=== PATIENT | female | born 1955 | race Caucasian/White ===

== ENCOUNTER 2017-05-17 06:49 | Emergency (ER) | payer MEDICARE, MEDICAID ==
[2017-05-17] MEDS ORDERED: Ketorolac 60 MG/2 ML SDV IM ONE (07:40)
--- NOTE | 2017-05-17 08:12 | EDM.PDOC ---
ED HPI GENERAL MEDICAL PROBLEM - General Chief Complaint: Back Pain or Injury Stated Complaint: BACK PAIN Time Seen by Provider: 05/17/17 07:45 Source of Information: Reports: Patient History Limitations: Reports: No Limitations - History of Present Illness INITIAL COMMENTS - FREE TEXT/NARRATIVE: pt arrived stating that this am she was having midsternal chest pain which she rated at a 7. She had gotten up to deal with that and developed severe pain in the lumbar area radiatig down the rt leg. She states this is the worst her back pin has ever been. She is going to the bathroom frequently. Onset: Today Duration: Hour(s): Location: Reports: Chest, Back Associated Symptoms: Reports: Chest Pain, Other (pt is having severe back pain going down the rt leg. ) Lower Back Pain Score (Numeric/FACES): 7 - Related Data Allergies Allergy/AdvReac Type Severity Reaction Status Date / Time acetaminophen [From Vicodin] Allergy Cannot Verified 05/17/17 07:10 Remember azithromycin Allergy Rash Verified 05/17/17 07:10 cyclobenzaprine HCl Allergy Rash Verified 05/17/17 07:10 [From Flexeril] hydrocodone [From Vicodin] Allergy Cannot Verified 05/17/17 07:10 Remember oxycodone HCl Allergy Rash Verified 05/17/17 07:10 [From OxyContin] Sulfa (Sulfonamide Allergy Rash Verified 05/17/17 07:10 Antibiotics) Home Meds: Home Meds Simvastatin [Zocor] 20 mg PO BEDTIME 05/14/13 [History] Aspirin [Halfprin] 81 mg PO QAM 02/06/15 [History] Ca Carbonate/Vitamin D3/Vit K [Calcium + D Soft Chewable Tab] 2 tab PO BID 02/06 [History] Multivitamins,Therapeutic [Thera] 1 tab PO BID 02/06/15 [History] Gabapentin [Gabapentin] 300 mg PO TID PRN 12/21/15 [History] Esomeprazole Magnesium [Nexium] 40 mg PO DAILY 04/27/16 [History] Furosemide [Lasix] 20 mg PO DAILY PRN 04/27/16 [History] Dimethyl Fumarate [Tecfidera] 240 mg PO BID 06/16/16 [History] Ondansetron [Ondansetron] 4 mg PO Q6HR PRN 06/16/16 [History] Acetaminophen/Codeine [Tylenol with Codeine No.3 300MG/30MG] 1 tab PO Q6H PRN [History] diphenhydrAMINE [Benadryl] 25 mg PO Q4H PRN 05/17/17 [History] Past Medical History HEENT History: Reports: Cataract, Impaired Vision Cardiovascular History: Reports: High Cholesterol Other Cardiovascular History: EDEMA IN LEGS Respiratory History: Reports: Pneumonia, Recurrent Gastrointestinal History: Reports: Gastritis, GERD Genitourinary History: Reports: Renal Calculus, UTI, Recurrent Other Genitourinary History: Current treatment for yeast [employer]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: Dysfunctional Uterine Bleeding, Musculoskeletal History: Reports: Back Pain, Chronic, Fracture Other Musculoskeletal History: l ankle Neurological History: Reports: Migraines, MS Psychiatric History: Reports: Anxiety, Depression Endocrine/Metabolic History: Reports: Obesity/BMI 30+ Hematologic History: Reports: Anemia Immunologic History: Reports: None Oncologic (Cancer) History: Reports: None Dermatologic History: Reports: Other (See Below) Other Dermatologic History: recurrent treatment for yeast - Infectious Disease History Infectious Disease History: Reports: Chicken Pox, Measles - Past Surgical History HEENT Surgical History: Reports: Adenoidectomy, Cataract Surgery, Tonsillectomy , Visual GI Surgical History: Reports: Appendectomy, Bariatric Procedure, Cholecystectomy , Colonoscopy Female Surgical History: Reports: Hysterectomy, Salpingo-Oophorectomy, Tubal Ligation Endocrine Surgical History: Reports: None Neurological Surgical History: Reports: None Musculoskeletal Surgical History: Reports: Carpal Tunnel, Shoulder Surgery Social & Family History - Family History Family Medical History: Noncontributory - Tobacco Use Smoking Status *Q: Never Smoker Second Hand Smoke Exposure: No - Caffeine Use Caffeine Use: Reports: Soda, Tea - Alcohol Use Days Per Week of Alcohol Use: 0 - Recreational Drug Use Recreational Drug Use: No ED ROS GENERAL - Review of Systems Review Of Systems: See Below Constitutional: Reports: No Symptoms HEENT: Reports: No Symptoms Respiratory: Reports: No Symptoms Cardiovascular: Reports: Chest Pain Endocrine: Reports: No Symptoms GI/Abdominal: Reports: No Symptoms : Reports: Frequency Musculoskeletal: Reports: Other (pt hs severe pain in the lower back going down the rt leg. ) Skin: Reports: No Symptoms ED EXAM,LOWER BACK PAIN/INJURY - Physical Exam Exam: See Below Text/Narrative:: pt arrived uncomfortable in the lower back and having urinary frequency. Exam Limited By: No Limitations General Appearance: Alert, Anxious, Moderate Distress Ears: Normal TMs Nose: Normal Inspection Throat/Mouth: Normal Inspection Head: Atraumatic Neck: Normal Inspection Respiratory/Chest: No Respiratory Distress Cardiovascular: Regular Rate, Rhythm GI/Abdominal: Soft, Non-Tender (Female) Exam: Deferred Rectal (Female) Exam: Deferred Back Exam: Other (pt has rt lumbar paraspinous tenderness. ) Extremities: Normal Inspection Neurological: Alert, Oriented x 3 Psychiatric: Normal Affect Course - Vital Signs Last Recorded V/S: Last Vital Signs Temp 37 C 05/17/17 09:45 Pulse 73 05/17/17 09:45 Resp 16 05/17/17 09:45 BP 130/65 05/17/17 09:45 Pulse Ox 99 05/17/17 09:45 - Orders/Labs/Meds Orders: Active Orders 24 hr Category Date Time Status EKG Documentation Completion [RC] ASDIRECTED Care 05/17/17 08:06 Active CULTURE URINE [RM] Stat Lab 05/17/17 08:23 Results EKG 12 Lead [EK] Routine Ther 05/17/17 08:06 Ordered Labs: Laboratory Tests 05/17/17 05/17/17 05/17/17 Range/Units 07:46 07:55 08:25 WBC 8.6 (4.5-11.0) K/uL RBC 4.62 (3.30-5.50) M/uL Hgb 13.0 D (12.0-15.0) g/dL Hct 39.7 (36.0-48.0) % MCV 86 (80-98) fL MCH 28 (27-31) pg MCHC 33 (32-36) % Plt Count 220 (150-400) K/uL Neut % (Auto) 73 H (36-66) % Lymph % (Auto) 8 L (24-44) % [place] % (Auto) 7 H (2-6) % Eos % (Auto) 12 H (2-4) % Baso % (Auto) 1 (0-1) % Sodium (140-148) mmol/L Potassium (3.6-5.2) mmol/L Chloride (100-108) mmol/L Carbon Dioxide (21-32) mmol/L Anion Gap (5.0-14.0) mmol/L BUN (7-18) mg/dL Creatinine (0.6-1.0) mg/dL Est Cr Clr Drug Dosing mL/min Estimated GFR (MDRD) (>60) Glucose (74-106) mg/dL Calcium (8.5-10.1) mg/dL Total Bilirubin (0.2-1.0) mg/dL AST (15-37) U/L ALT (12-78) U/L Alkaline Phosphatase (46-116) U/L Troponin I < 0.017 (0.000-0.056) ng/mL Total Protein (6.4-8.2) g/dL Albumin (3.4-5.0) g/dL Globulin (2.3-3.5) g/dL Albumin/Globulin Ratio (1.2-2.2) Urine Color Yellow Urine Appearance Cloudy Urine pH 5.0 (4.5-8.0) Ur Specific [place] 1.025 (1.008-1.030) Urine Protein Trace (NEGATIVE) mg/dL Urine Glucose (UA) Normal (NEGATIVE) mg/dL Urine Ketones Negative (NEGATIVE) mg/dL Urine Occult Blood Large (NEGATIVE) Urine Nitrite Negative (NEGATIVE) Urine Bilirubin Small (NEGATIVE) Urine Urobilinogen 1 (NORMAL) mg/dL Ur Leukocyte Esterase Small (NEGATIVE) Urine RBC 5-10 H (0-5) Urine WBC 5-10 H (0-5) Ur Epithelial Cells Moderate Amorphous Sediment Not seen Urine Bacteria Few Urine Mucus Many Urine Other 05/17/17 Range/Units 08:25 WBC (4.5-11.0) K/uL RBC (3.30-5.50) M/uL Hgb (12.0-15.0) g/dL Hct (36.0-48.0) % MCV (80-98) fL MCH (27-31) pg MCHC (32-36) % Plt Count (150-400) K/uL Neut % (Auto) (36-66) % Lymph % (Auto) (24-44) % Woodruff % (Auto) (2-6) % Eos % (Auto) (2-4) % Baso % (Auto) (0-1) % Sodium 139 L (140-148) mmol/L Potassium 4.0 (3.6-5.2) mmol/L Chloride 102 (100-108) mmol/L Carbon Dioxide 30 (21-32) mmol/L Anion Gap 11.0 (5.0-14.0) mmol/L BUN 22 H (7-18) mg/dL Creatinine 1.0 (0.6-1.0) mg/dL Est Cr Clr Drug Dosing 46.13 mL/min Estimated GFR (MDRD) 56 L (>60) Glucose 92 (74-106) mg/dL Calcium 8.7 (8.5-10.1) mg/dL Total Bilirubin 0.3 D (0.2-1.0) mg/dL AST 22 (15-37) U/L ALT 30 (12-78) U/L Alkaline Phosphatase 91 (46-116) U/L Troponin I (0.000-0.056) ng/mL Total Protein 7.2 (6.4-8.2) g/dL Albumin 3.5 (3.4-5.0) g/dL Globulin 3.7 H (2.3-3.5) g/dL Albumin/Globulin Ratio 1.0 L (1.2-2.2) Urine Color Urine Appearance Urine pH (4.5-8.0) Ur Specific [place] (1.008-1.030) Urine Protein (NEGATIVE) mg/dL Urine Glucose (UA) (NEGATIVE) mg/dL Urine Ketones (NEGATIVE) mg/dL Urine Occult Blood (NEGATIVE) Urine Nitrite (NEGATIVE) Urine Bilirubin (NEGATIVE) Urine Urobilinogen (NORMAL) mg/dL Ur Leukocyte Esterase (NEGATIVE) Urine RBC (0-5) Urine WBC (0-5) Ur Epithelial Cells Amorphous Sediment Urine Bacteria Urine Mucus Urine Other Meds: Medications Discontinued Medications Generic Name Dose Route Start Last Admin Trade Name Freq PRN Reason Stop Dose Admin Ceftriaxone Sodium 1 gm/ 0 gm 05/17/17 09:47 05/17/17 10:13 Lidocaine HCl 2.1 ml IM 05/17/17 09:48 1 inj ONETIME ONE Administration Ketorolac Tromethamine 60 mg 05/17/17 07:40 05/17/17 07:46 Toradol IM 05/17/17 07:41 60 mg ONETIME ONE Administration - Re-Assessments/Exams Free Text/Narrative Re-Assessment/Exam: 05/17/17 10:16 pt is having definite uti symptoms and is going very frequently. She has a urine with wbcs without alot of bacteria. She was given torodol 60mg im and has had good relief with that. Her ekg and trop are normal. 05/17/17 10:17 Departure - Departure Time of Disposition: 10:17 Disposition: Home, Self-Care 01 Condition: Fair Clinical Impression: UTI (urinary tract infection), Lumbar disc disease - Discharge Information Instructions: Urinary Tract Infection, Adult Referrals: PCP,None [Primary Care Provider] - Forms: ED Department Discharge Care Plan Goals: push fluids, get her tylenol 3 refilled. torodol 10mg tid for the next 3 days, moist warm packs to the low back on the rt, cipro 500mg bid, diflucan 100mg for --prevent yeast infection, rtc if problems. - My Orders Last 24 Hours: My Active Orders 05/17/17 08:06 EKG Documentation Completion [RC] ASDIRECTED EKG 12 Lead [EK] Routine 05/17/17 08:23 CULTURE URINE [RM] Stat - Assessment/Plan Last 24 Hours: My Active Orders 05/17/17 08:06 EKG Documentation Completion [RC] ASDIRECTED EKG 12 Lead [EK] Routine 05/17/17 08:23 CULTURE URINE [RM] Stat
[2017-05-17 09:46] VITALS: BP 130/65
[2017-05-17] MEDS ORDERED: cefTRIAXone 1 GM, Lidocaine 1% 2.1 ML IM ONE ×2 (09:47)
== END 2017-05-17 10:30 | disposition home or self-care (01) ==
LOC: JP.ED 06:49
DX: N39.0 Urinary tract infection, site not specified (principal); M51.36 Other intervertebral disc degeneration, lumbar region; E78.00 Pure hypercholesterolemia, unspecified; K21.9 Gastro-esophageal reflux disease without esophagitis; Z87.440 Personal history of urinary (tract) infections; G43.909 Migraine, unspecified, not intractable, without status migrainosus; F32.9 Major depressive disorder, single episode, unspecified; F41.9 Anxiety disorder, unspecified; E66.9 Obesity, unspecified; Z88.1 Allergy status to other antibiotic agents; Z79.899 Other long term (current) drug therapy; Z88.5 Allergy status to narcotic agent; Z88.2 Allergy status to sulfonamides; Z79.82 Long term (current) use of aspirin; Z86.79 Personal history of other diseases of the circulatory system; Z90.49 Acquired absence of other specified parts of digestive tract; Z90.89 Acquired absence of other organs; Z90.710 Acquired absence of both cervix and uterus; Z98.51 Tubal ligation status
CPT/HCPCS: 36415; 80053; 81001; 84484; 85025; 87086; 93005; 93010; 96372; 99283; 99284; J0696; J1885

== ENCOUNTER 2017-08-01 11:05 | Emergency (ER) | payer MEDICARE, MEDICAID ==
--- NOTE | 2017-08-01 12:00 | EDM.PDOC ---
ED HPI GENERAL MEDICAL PROBLEM - General Chief Complaint: Chest Pain Stated Complaint: MEDICAL Time Seen by Provider: 08/01/17 11:48 Source of Information: Reports: Patient, RN Notes Reviewed History Limitations: Reports: No Limitations - History of Present Illness INITIAL COMMENTS - FREE TEXT/NARRATIVE: 62-year-old female presents to the emergency department today complaint of a syncopal event, she states that she was sitting for a period time stood up quickly develop some chest pain, the next thing she knew she woke up on the ground initially, recalls landing on her butt then awoke on the ground. At this time she is chest pain-free has no other symptoms does complain of a cough that has been going on for a week EKG done by EMS services demonstrates normal sinus rhythm with no ST changes - Related Data Allergies Allergy/AdvReac Type Severity Reaction Status Date / Time acetaminophen [From Vicodin] Allergy Cannot Verified 05/17/17 07:10 Remember azithromycin Allergy Rash Verified 05/17/17 07:10 cyclobenzaprine HCl Allergy Rash Verified 05/17/17 07:10 [From Flexeril] hydrocodone [From Vicodin] Allergy Cannot Verified 05/17/17 07:10 Remember oxycodone HCl Allergy Rash Verified 05/17/17 07:10 [From OxyContin] Sulfa (Sulfonamide Allergy Rash Verified 05/17/17 07:10 Antibiotics) Home Meds: Home Meds Simvastatin [Zocor] 20 mg PO BEDTIME 05/14/13 [History] Aspirin [Halfprin] 81 mg PO QAM 02/06/15 [History] Ca Carbonate/Vitamin D3/Vit K [Calcium + D Soft Chewable Tab] 2 tab PO BID 02/06 [History] Multivitamins,Therapeutic [Thera] 1 tab PO BID 02/06/15 [History] Gabapentin [Gabapentin] 300 mg PO TID PRN 12/21/15 [History] Furosemide [Lasix] 20 mg PO DAILY PRN 04/27/16 [History] Dimethyl Fumarate [Tecfidera] 240 mg PO BID 06/16/16 [History] Ondansetron [Ondansetron] 4 mg PO Q6HR PRN 06/16/16 [History] Acetaminophen/Codeine [Tylenol with Codeine No.3 300MG/30MG] 1 tab PO Q6H PRN [History] diphenhydrAMINE [Benadryl] 25 mg PO Q4H PRN 05/17/17 [History] Citalopram [Citalopram HBr] 40 mg PO DAILY 08/01/17 [History] Esomeprazole Magnesium 40 mg PO DAILY 08/01/17 [History] Ibuprofen 800 mg PO TID PRN 08/01/17 [History] Past Medical History HEENT History: Reports: Cataract, Impaired Vision Cardiovascular History: Reports: High Cholesterol Other Cardiovascular History: EDEMA IN LEGS Respiratory History: Reports: Pneumonia, Recurrent Gastrointestinal History: Reports: Gastritis, GERD Genitourinary History: Reports: Renal Calculus, UTI, Recurrent Other Genitourinary History: Current treatment for yeast [employer]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 Bleeding, Musculoskeletal History: Reports: Back Pain, Chronic, Fracture Other Musculoskeletal History: R hip pain Neurological History: Reports: Migraines, MS Psychiatric History: Reports: Anxiety, Depression Endocrine/Metabolic History: Reports: Obesity/BMI 30+ Hematologic History: Reports: Anemia Dermatologic History: Reports: Other (See Below) Other Dermatologic History: recurrent treatment for yeast - Infectious Disease History Infectious Disease History: Reports: Chicken Pox, Measles - Past Surgical History HEENT Surgical History: Reports: Adenoidectomy, Cataract Surgery, Tonsillectomy , Visual GI Surgical History: Reports: Appendectomy, Bariatric Procedure, Cholecystectomy , Colonoscopy Female Surgical History: Reports: Hysterectomy, Salpingo-Oophorectomy, Tubal Ligation Endocrine Surgical History: Reports: None Neurological Surgical History: Reports: None Musculoskeletal Surgical History: Reports: Carpal Tunnel, Shoulder Surgery Social & Family History - Family History Family Medical History: Noncontributory - Tobacco Use Smoking Status *Q: Never Smoker Second Hand Smoke Exposure: No - Caffeine Use Caffeine Use: Reports: Soda, Tea - Alcohol Use Days Per Week of Alcohol Use: 0 - Recreational Drug Use Recreational Drug Use: No ED ROS GENERAL - Review of Systems Review Of Systems: See Below Constitutional: Reports: No Symptoms HEENT: Reports: No Symptoms Respiratory: Reports: Cough Cardiovascular: Reports: Syncope ED EXAM, GENERAL - Physical Exam Exam: See Below Free Text/Narrative:: General: Female, not in any distress, alert and oriented x3 HEENT: head is atraumatic normocephalic, eyes pupils equal round reactive to light, sclera clear no conjunctivitis appreciated. Ears tympanic membranes clear and gomez landmarks and light reflex are present bilaterally canals are clear. Nose no septal deviation, nares are clear, no blood present. Mouth mucosa is moist and pink no erythema or exudate noted in soft palate, tongue is midline uvula is midline, dentition is intact. Neck: Supple no thyromegaly no tracheal deviation. Nodes: Cervical nodes subclavicular nodes nontender no palpable lymphadenopathy noted. Lungs: clear to auscultation bilaterally with symmetrical respirations, no adventitious noise appreciated. CV: Regular rate and rhythm S1 and S2 appreciated no murmurs rubs or gallops noted. Abdomen: Soft, nontender, no palpable masses or organomegaly appreciated, no distention no guarding bowel sounds are present, Neuro: Cranial nerves II through XII grossly intact Skin: Warm and dry, intact Extremities: +1 edema bilaterally, pedal pulse is +2. Course - Vital Signs Last Recorded V/S: Last Vital Signs Temp 97.7 F 08/01/17 11:23 Pulse 82 08/01/17 11:23 Resp 14 08/01/17 11:23 BP 133/79 08/01/17 11:23 Pulse Ox 97 08/01/17 11:23 - Orders/Labs/Meds Orders: Active Orders 24 hr Category Date Time Status Cardiac Monitoring [RC] .As Directed Care 08/01/17 11:54 Active CULTURE URINE [RM] Urgent Lab 08/01/17 13:23 Ordered Labs: Laboratory Tests 08/01/17 08/01/17 08/01/17 Range/Units 11:57 12:01 12:01 WBC 5.9 (4.5-11.0) K/uL RBC 4.43 (3.30-5.50) M/uL Hgb 12.5 (12.0-15.0) g/dL Hct 39.7 (36.0-48.0) % MCV 90 (80-98) fL MCH 28 (27-31) pg MCHC 32 (32-36) % Plt Count 268 (150-400) K/uL Neut % (Auto) 73 H (36-66) % Lymph % (Auto) 13 L (24-44) % [place] % (Auto) 11 H (2-6) % Eos % (Auto) 2 (2-4) % Baso % (Auto) 0 (0-1) % Sodium 141 (140-148) mmol/L Potassium 3.9 (3.6-5.2) mmol/L Chloride 106 (100-108) mmol/L Carbon Dioxide 30 (21-32) mmol/L Anion Gap 4.8 L (5.0-14.0) mmol/L BUN 19 H (7-18) mg/dL Creatinine 0.8 (0.6-1.0) mg/dL Est Cr Clr Drug Dosing 57.67 mL/min Estimated GFR (MDRD) > 60 (>60) Glucose 120 H (74-106) mg/dL Calcium 8.9 (8.5-10.1) mg/dL Total Bilirubin 0.3 (0.2-1.0) mg/dL AST 17 (15-37) U/L ALT 32 (12-78) U/L Alkaline Phosphatase 94 (46-116) U/L CK-MB (CK-2) 0.3 (0-3.6) mg/mL Troponin I < 0.017 (0.000-0.056) ng/mL Total Protein 6.7 (6.4-8.2) g/dL Albumin 3.5 (3.4-5.0) g/dL Globulin 3.2 (2.3-3.5) g/dL Albumin/Globulin Ratio 1.1 L (1.2-2.2) Urine Color Yellow Urine Appearance Cloudy Urine pH 6.0 (4.5-8.0) Ur Specific [place] 1.020 (1.008-1.030) Urine Protein Negative (NEGATIVE) mg/dL Urine Glucose (UA) Normal (NEGATIVE) mg/dL Urine Ketones Negative (NEGATIVE) mg/dL Urine Occult Blood Large (NEGATIVE) Urine Nitrite Negative (NEGATIVE) Urine Bilirubin Small (NEGATIVE) Urine Urobilinogen 1 (NORMAL) mg/dL Ur Leukocyte Esterase Moderate (NEGATIVE) Urine RBC 0-5 (0-5) Urine WBC 5-10 H (0-5) Ur Epithelial Cells Moderate Amorphous Sediment Few Urine Bacteria Few Urine Mucus Moderate Departure - Departure Time of Disposition: 13:30 Disposition: Home, Self-Care 01 Condition: Good Clinical Impression: Vasovagal syncope Referrals: PCP,None [Primary Care Provider] - Forms: ED Department Discharge Additional Instructions: Continue regular medications, Please followup with your primary care provider in 3-5 days if not better, please call return to the emergency department with worsening of symptoms. - My Orders Last 24 Hours: My Active Orders 08/01/17 11:54 Cardiac Monitoring [RC] .As Directed 08/01/17 13:23 CULTURE URINE [RM] Urgent - Assessment/Plan Last 24 Hours: My Active Orders 08/01/17 11:54 Cardiac Monitoring [RC] .As Directed 08/01/17 13:23 CULTURE URINE [RM] Urgent Plan: Assessment Acuity = acute Site and laterality = vasovagal syncopal event comp came patient with known history of multiple sclerosis Etiology = probable change in position quickly Manifestations = none Location of injury = Home Lab values = CBC, CMP, troponin, CK-MB are within normal limits EKG demonstrates sinus rhythm no ST changes or depressions chest x-ray shows no acute process urinalysis 5-10 wbc's consists of pyuria cultures pending Plan I did review lab work EKG chest x-ray results with her she remained asymptomatic while in the emergency department plan is discharge home follow-up primary care 3-5 days if no improvement Patient was in agreement with the plan all questions were answered, they were instructed to return to the emergency department or call for worsening symptoms. This note was dictated using [employer] voice recognition software please call with any questions.
--- NOTE | 2017-08-01 12:51 | CR ---
Chest 2V INDICATION: Chest Pain COMPARISON: 09/08/2016 FINDINGS: 3 views. Heart size normal. Lungs are clear. No infiltrate or pleural effusion. No signs of pulmonary edema.
[2017-08-01 13:54] VITALS: BP 121/79
== END 2017-08-01 13:44 | disposition home or self-care (01) ==
LOC: JP.ED 11:05
DX: R55 Syncope and collapse (principal); E78.00 Pure hypercholesterolemia, unspecified; K21.9 Gastro-esophageal reflux disease without esophagitis; F32.9 Major depressive disorder, single episode, unspecified; Z79.82 Long term (current) use of aspirin; Z79.899 Other long term (current) drug therapy; Z88.1 Allergy status to other antibiotic agents; Z88.2 Allergy status to sulfonamides; Z88.6 Allergy status to analgesic agent; Z88.8 Allergy status to other drugs, medicaments and biological substances; Z88.5 Allergy status to narcotic agent
CPT/HCPCS: 36415; 71020; 71020-26; 80053; 81001; 82553; 84484; 85025; 87086; 87088; 87186; 99284; 99285

== ENCOUNTER 2018-01-12 13:59 | Emergency (ER) | payer MEDICARE, MEDICAID, OTHER ==
[2018-01-12 14:14] VITALS: BP 168/90
[2018-01-12] MEDS ORDERED: Ketorolac 60 MG/2 ML SDV IM ONE (15:12)
--- NOTE | 2018-01-12 15:15 | EDM.PDOC ---
ED HPI GENERAL MEDICAL PROBLEM - General Chief Complaint: General Stated Complaint: CHEST PRESSURE URINE OFTEN Time Seen by Provider: 01/12/18 14:59 Source of Information: Reports: Patient, RN Notes Reviewed History Limitations: Reports: No Limitations - History of Present Illness INITIAL COMMENTS - FREE TEXT/NARRATIVE: 62-year-old female presents emergency department today with complaint of low back pain, she states she fell yesterday and is having pain lower part of her back she also is having some urinary frequency and is complaining of a headache - Related Data Allergies Allergy/AdvReac Type Severity Reaction Status Date / Time acetaminophen [From Vicodin] Allergy Cannot Verified 01/12/18 14:35 Remember azithromycin Allergy Rash Verified 01/12/18 14:35 cyclobenzaprine HCl Allergy Rash Verified 01/12/18 14:35 [From Flexeril] hydrocodone [From Vicodin] Allergy Cannot Verified 01/12/18 14:35 Remember oxycodone HCl Allergy Rash Verified 01/12/18 14:35 [From OxyContin] Sulfa (Sulfonamide Allergy Rash Verified 01/12/18 14:35 Antibiotics) Home Meds: Home Meds Simvastatin [Zocor] 20 mg PO BEDTIME 05/14/13 [History] Aspirin [Halfprin] 81 mg PO QAM 02/06/15 [History] Ca Carbonate/Vitamin D3/Vit K [Calcium + D Soft Chewable Tab] 2 tab PO BID 02/06 [History] Multivitamins,Therapeutic [Thera] 1 tab PO BID 02/06/15 [History] Gabapentin 300 mg PO TID PRN 12/21/15 [History] Furosemide [Lasix] 20 mg PO DAILY PRN 04/27/16 [History] Dimethyl Fumarate [Tecfidera] 240 mg PO BID 06/16/16 [History] Ondansetron 4 mg PO Q6HR PRN 06/16/16 [History] Acetaminophen/Codeine [Tylenol with Codeine No.3 300MG/30MG] 1 tab PO Q6H PRN [History] diphenhydrAMINE [Benadryl] 25 mg PO Q4H PRN 05/17/17 [History] Citalopram [Citalopram HBr] 40 mg PO DAILY 08/01/17 [History] Esomeprazole Magnesium 40 mg PO DAILY 08/01/17 [History] Ibuprofen 800 mg PO TID PRN 08/01/17 [History] Past Medical History HEENT History: Reports: Cataract, Impaired Vision Cardiovascular History: Reports: High Cholesterol Other Cardiovascular History: EDEMA IN LEGS Respiratory History: Reports: Pneumonia, Recurrent Gastrointestinal History: Reports: Gastritis, GERD Genitourinary History: Reports: Renal Calculus, UTI, Recurrent Other Genitourinary History: Current treatment for yeast 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, Musculoskeletal History: Reports: Back Pain, Chronic, Fracture Other Musculoskeletal History: R hip pain Neurological History: Reports: Migraines, MS Psychiatric History: Reports: Anxiety, Depression Endocrine/Metabolic History: Reports: Obesity/BMI 30+ Hematologic History: Reports: Anemia Dermatologic History: Reports: Other (See Below) Other Dermatologic History: recurrent treatment for yeast - Infectious Disease History Infectious Disease History: Reports: Chicken Pox, Measles - Past Surgical History HEENT Surgical History: Reports: Adenoidectomy, Cataract Surgery, Tonsillectomy , Visual GI Surgical History: Reports: Appendectomy, Bariatric Procedure, Cholecystectomy , Colonoscopy Female Surgical History: Reports: Hysterectomy, Salpingo-Oophorectomy, Tubal Ligation Endocrine Surgical History: Reports: None Neurological Surgical History: Reports: None Musculoskeletal Surgical History: Reports: Carpal Tunnel, Shoulder Surgery Social & Family History - Family History Family Medical History: Noncontributory - Tobacco Use Smoking Status *Q: Never Smoker - Caffeine Use Caffeine Use: Reports: Soda, Tea ED ROS GENERAL - Review of Systems Review Of Systems: See Below Constitutional: Reports: No Symptoms HEENT: Reports: No Symptoms Respiratory: Reports: No Symptoms Cardiovascular: Reports: No Symptoms GI/Abdominal: Reports: No Symptoms : Reports: Frequency Musculoskeletal: Reports: Back Pain Neurological: Reports: Headache ED EXAM, GENERAL - Physical Exam Exam: See Below Exam Limited By: No Limitations General Appearance: Alert, WD/WN, No Apparent Distress Respiratory/Chest: No Respiratory Distress GI/Abdominal: Normal Bowel Sounds, Soft, Non-Tender, No Distention Back Exam: Normal Inspection, Decreased Range of Motion, Vertebral Tenderness ( Lumbar region). No: CVA Tenderness (R), CVA Tenderness (L), Muscle Spasm, Paraspinal Tenderness Course - Vital Signs Last Recorded V/S: Last Vital Signs Temp 96.6 F 01/12/18 14:44 Pulse 94 01/12/18 14:44 Resp 15 01/12/18 14:44 BP 168/90 H 01/12/18 14:44 Pulse Ox 99 01/12/18 14:44 - Orders/Labs/Meds Orders: Active Orders 24 hr Category Date Time Status Lumbar Spine 2 or 3V [CR] Stat Exams 01/12/18 15:12 Taken CULTURE URINE [RM] Urgent Lab 01/12/18 16:21 Ordered UA W/MICROSCOPIC [URIN] Urgent Lab 01/12/18 14:30 Ordered Labs: Laboratory Tests 01/12/18 Range/Units 14:30 Urine Color Yellow Urine Appearance Cloudy Urine pH 5.0 (4.5-8.0) Ur Specific [place] 1.025 (1.008-1.030) Urine Protein Negative (NEGATIVE) mg/dL Urine Glucose (UA) Normal (NEGATIVE) mg/dL Urine Ketones Negative (NEGATIVE) mg/dL Urine Occult Blood Negative (NEGATIVE) Urine Nitrite Negative (NEGATIVE) Urine Bilirubin Moderate (NEGATIVE) Urine Urobilinogen 1 (NORMAL) mg/dL Ur Leukocyte Esterase Moderate (NEGATIVE) Urine RBC 0-5 (0-5) Urine WBC 10-20 H (0-5) Ur Epithelial Cells Many Amorphous Sediment Not seen Urine Bacteria Many Urine Mucus Moderate Urine Other Meds: Medications Discontinued Medications Generic Name Dose Route Start Last Admin Trade Name Leann PRN Reason Stop Dose Admin Ketorolac Tromethamine 60 mg 01/12/18 15:12 01/12/18 15:20 Toradol IM 01/12/18 15:13 60 mg ONETIME ONE Administration Departure - Departure Time of Disposition: 16:49 Disposition: Home, Self-Care 01 Condition: Fair Clinical Impression: UTI (urinary tract infection) with pyuria - Discharge Information Referrals: Fred Pedersen MD [Primary Care Provider] - Forms: ED Department Discharge Additional Instructions: Take full course of antibiotics, Please followup with your primary care provider in 5-7 days if not better, please call return to the emergency department with worsening of symptoms. - My Orders Last 24 Hours: My Active Orders 01/12/18 14:30 UA W/MICROSCOPIC [URIN] Urgent 01/12/18 15:12 Lumbar Spine 2 or 3V [CR] Stat 01/12/18 16:21 CULTURE URINE [RM] Urgent - Assessment/Plan Last 24 Hours: My Active Orders 01/12/18 14:30 UA W/MICROSCOPIC [URIN] Urgent 01/12/18 15:12 Lumbar Spine 2 or 3V [CR] Stat 01/12/18 16:21 CULTURE URINE [RM] Urgent Plan: Assessment Acuity = acute Site and laterality = urinary tract infection Etiology = probable bacterial cause Manifestations = dysuria Location of injury = Home Lab values = urinalysis reveals 10-20 wbc's consists of pyuria, many bacteria cultures pending, lumbar spine films I did review films myself I cannot appreciate any acute process, the official read from radiology is pending Plan Prescription written for Macrobid 100 mg by by mouth twice a day 7 days follow-up with primary care in 5-7 days if no improvement This note was dictated using [email or web address] voice recognition software please call with any questions on syntax or grammar.
--- NOTE | 2018-01-13 09:19 | CR ---
L-spine Comparison: Lumbar MRI May 2017. There is a chronic central endplate compression of L3. There is no significant progression from the M RI. There is grade 1 spondylolisthesis at L4/5. There is disc space loss at L4/5 with sclerotic endpl ate changes. There is degenerative facet arthropathy at the L4/5 and L5/S1 levels. Impression: 1. Chronic mild compression of L3. There are no new compression fractures. 2. L4/5 spondylolisthesis. 3. Degenerative disc disease and facet arthropathy.
== END 2018-01-12 16:57 | disposition home or self-care (01) ==
LOC: JP.ED 13:59
DX: N39.0 Urinary tract infection, site not specified (principal); E78.00 Pure hypercholesterolemia, unspecified; Z88.6 Allergy status to analgesic agent; Z88.1 Allergy status to other antibiotic agents; Z88.2 Allergy status to sulfonamides; Z88.5 Allergy status to narcotic agent; Z79.82 Long term (current) use of aspirin; Z79.899 Other long term (current) drug therapy
CPT/HCPCS: 72100; 81001; 87086; 96372; 99284; J1885

== ENCOUNTER 2018-05-19 21:42 | Emergency (ER) | payer MEDICARE, MEDICAID ==
[2018-05-19 21:52] VITALS: BP 136/68
[2018-05-19] MEDS ORDERED: Acetaminophen 325 MG Tab PO ONE (22:42)
--- NOTE | 2018-05-19 23:26 | EDM.PDOC ---
ED HPI GENERAL MEDICAL PROBLEM - General Chief Complaint: Syncope Stated Complaint: FELL IN SHOWER Time Seen by Provider: 05/19/18 22:14 Source of Information: Reports: Patient History Limitations: Reports: No Limitations - History of Present Illness INITIAL COMMENTS - FREE TEXT/NARRATIVE: This lady stood up off toilet at home and became dizzy and fell, striking her head and possibly the back of her neck. 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 Mild low back pain. Complains of yeast infection to chest and saw a pinkish discharge when she wiped after falling. neck pain Pain Score (Numeric/FACES): 8 - Related Data Allergies Allergy/AdvReac Type Severity Reaction Status Date / Time acetaminophen [From Vicodin] Allergy Cannot Verified 05/19/18 21:51 Remember azithromycin Allergy Rash Verified 05/19/18 21:51 cyclobenzaprine HCl Allergy Rash Verified 05/19/18 21:51 [From Flexeril] hydrocodone [From Vicodin] Allergy Cannot Verified 05/19/18 21:51 Remember oxycodone HCl Allergy Rash Verified 05/19/18 21:51 [From OxyContin] Sulfa (Sulfonamide Allergy Rash Verified 05/19/18 21:51 Antibiotics) Home Meds: Home Meds Simvastatin [Zocor] 20 mg PO BEDTIME 05/14/13 [History] Aspirin [Halfprin] 81 mg PO QAM 02/06/15 [History] Ca Carbonate/Vitamin D3/Vit K [Calcium + D Soft Chewable Tab] 2 tab PO BID 02/06 [History] Multivitamins,Therapeutic [Thera] 1 tab PO BID 02/06/15 [History] Gabapentin 300 mg PO TID PRN 12/21/15 [History] Furosemide [Lasix] 20 mg PO DAILY PRN 04/27/16 [History] Dimethyl Fumarate [Tecfidera] 240 mg PO BID 06/16/16 [History] Ondansetron 4 mg PO Q6HR PRN 06/16/16 [History] Acetaminophen/Codeine [Tylenol with Codeine No.3 300MG/30MG] 1 tab PO Q6H PRN [History] diphenhydrAMINE [Benadryl] 25 mg PO Q4H PRN 05/17/17 [History] Citalopram [Citalopram HBr] 40 mg PO DAILY 08/01/17 [History] Esomeprazole Magnesium 40 mg PO DAILY 08/01/17 [History] Ibuprofen 800 mg PO TID PRN 08/01/17 [History] FLUoxetine HCl [Prozac] 20 mg PO DAILY 05/19/18 [History] Naproxen 500 mg PO ASDIRECTED 05/19/18 [History] traMADol HCl [Tramadol HCl] 50 mg PO Q6H PRN 05/19/18 [History] Past Medical History HEENT History: Reports: Cataract, Impaired Vision Cardiovascular History: Reports: High Cholesterol, Other (See Below) Other Cardiovascular History: EDEMA IN LEGS Respiratory History: Reports: Pneumonia, Recurrent Gastrointestinal History: Reports: Gastritis, GERD Genitourinary History: Reports: Renal Calculus, UTI, Recurrent Other Genitourinary History: Current treatment for yeast 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, Musculoskeletal History: Reports: Back Pain, Chronic, Fracture Other Musculoskeletal History: R hip pain Neurological History: Reports: Migraines, MS Psychiatric History: Reports: Anxiety, Depression Endocrine/Metabolic History: Reports: Obesity/BMI 30+ Hematologic History: Reports: Anemia Immunologic History: Reports: None Oncologic (Cancer) History: Reports: None Dermatologic History: Reports: Other (See Below) Other Dermatologic History: recurrent treatment for yeast - Infectious Disease History Infectious Disease History: Reports: Chicken Pox, Measles - Past Surgical History HEENT Surgical History: Reports: Adenoidectomy, Cataract Surgery, Tonsillectomy , Visual GI Surgical History: Reports: Appendectomy, Bariatric Procedure, Cholecystectomy , Colonoscopy Female Surgical History: Reports: Hysterectomy, Salpingo-Oophorectomy, Tubal Ligation Musculoskeletal Surgical History: Reports: Carpal Tunnel, Shoulder Surgery Social & Family History - Family History Family Medical History: Noncontributory - Tobacco Use Smoking Status *Q: Never Smoker - Caffeine Use Caffeine Use: Reports: Soda - Recreational Drug Use Recreational Drug Use: No Review of Systems - Review of Systems Review Of Systems: See Below Constitutional: Reports: No Symptoms Eyes: Reports: No Symptoms Ears: Reports: No Symptoms Nose: Reports: No Symptoms Mouth/Throat: Reports: No Symptoms Respiratory: Reports: No Symptoms Cardiovascular: Reports: No Symptoms GI/Abdominal: Reports: No Symptoms Genitourinary: Reports: Other (see hpi) Musculoskeletal: Reports: Back Pain Skin: Reports: Other (hpi) Neurological: Reports: Syncope Psychiatric: Reports: No Symptoms ED EXAM, GENERAL - Physical Exam Exam: See Below Exam Limited By: No Limitations General Appearance: Alert, No Apparent Distress, Obese Eye Exam: Bilateral Eye: Normal Inspection Ears: Normal External Exam Nose: Normal Inspection Throat/Mouth: Normal Inspection Head: Atraumatic Neck: Normal Inspection (after collar removal) Respiratory/Chest: Lungs Clear Cardiovascular: Regular Rate, Rhythm GI/Abdominal: Non-Tender Extremities: Normal Inspection Neurological: Alert, Oriented, Sensory/Motor Deficit Skin Exam: Warm, Dry Course - Vital Signs Last Recorded V/S: Last Vital Signs Temp 35.6 C 05/19/18 21:57 Pulse 88 05/19/18 21:57 Resp 16 05/19/18 21:57 BP 136/68 05/19/18 21:57 Pulse Ox 95 05/19/18 21:57 - Orders/Labs/Meds Orders: Active Orders 24 hr Category Date Time Status Cervical Spine wo Cont [CT] Stat Exams 05/19/18 22:15 Taken Head wo Cont [CT] Stat Exams 05/19/18 22:15 Taken Meds: Medications Discontinued Medications Generic Name Dose Route Start Last Admin Trade Name Leann PRN Reason Stop Dose Admin Acetaminophen 650 mg 05/19/18 22:42 05/19/18 22:49 Tylenol PO 05/19/18 22:43 650 mg NOW ONE Administration - Radiology Interpretation Free Text/Narrative:: CT head and C-spine normal - Re-Assessments/Exams Free Text/Narrative Re-Assessment/Exam: 05/20/18 07:06 tylenol for headache Departure - Departure Time of Disposition: 23:23 Disposition: Home, Self-Care 01 Condition: Fair Clinical Impression: Minor head injury - Discharge Information Instructions: Fall Prevention in the Home, [id number] Referrals: Fred Pedersen MD [Primary Care Provider] - Forms: ED Department Discharge Additional Instructions: Use Tylenol for pain. See your doctor on Tuesday as planned. For the yeast infection you may use any of the yeast creams such as clotrimazole , miconazole or terbinafine. Be sure to tell your doctor that you saw some blood. - My Orders Last 24 Hours: My Active Orders 05/19/18 22:15 Cervical Spine wo Cont [CT] Stat Head wo Cont [CT] Stat - Assessment/Plan Last 24 Hours: My Active Orders 05/19/18 22:15 Cervical Spine wo Cont [CT] Stat Head wo Cont [CT] Stat
== END 2018-05-19 23:33 | disposition home or self-care (01) ==
LOC: JP.ED 21:42
DX: S09.90XA Unspecified injury of head, initial encounter (principal); E66.9 Obesity, unspecified; Z79.899 Other long term (current) drug therapy; Z88.2 Allergy status to sulfonamides; Z88.1 Allergy status to other antibiotic agents; W18.00XA Striking against unspecified object with subsequent fall, initial encounter
CPT/HCPCS: 70450; 72125; 99284; A9270; 99283

== ENCOUNTER 2018-06-04 17:53 | Emergency (ER) | payer MEDICARE, MEDICAID ==
[2018-06-04 18:26] VITALS: BP 140/69
[2018-06-04] MEDS ORDERED: HYDROmorphone 1 MG/ML Syringe IM ONE (19:06)
[2018-06-04] MEDS ORDERED: Ondansetron 4 MG Tab.DIS PO ONE (19:06)
--- NOTE | 2018-06-04 19:42 | EDM.PDOC ---
ED HPI GENERAL MEDICAL PROBLEM - General Chief Complaint: Upper Extremity Injury/Pain Stated Complaint: RIGHT ARM NUMBNESS/PAIN Time Seen by Provider: 06/04/18 18:35 Source of Information: Reports: Patient History Limitations: Reports: No Limitations - History of Present Illness INITIAL COMMENTS - FREE TEXT/NARRATIVE: This lady complains of severe pain in her right shoulder for 1 week. No trauma. It started a few days ago after coughing. She was seen in clinic and an antibiotic awas prescribed. The cough is better. Today shoulder pain is worse and right arm seems numb and tingly. Pain a little worse with shoulder movement. - Related Data Allergies Allergy/AdvReac Type Severity Reaction Status Date / Time acetaminophen [From Vicodin] Allergy Cannot Verified 06/04/18 18:13 Remember azithromycin Allergy Rash Verified 06/04/18 18:13 cyclobenzaprine HCl Allergy Rash Verified 06/04/18 18:13 [From Flexeril] hydrocodone [From Vicodin] Allergy Cannot Verified 06/04/18 18:13 Remember oxycodone HCl Allergy Rash Verified 06/04/18 18:13 [From OxyContin] Sulfa (Sulfonamide Allergy Rash Verified 06/04/18 18:13 Antibiotics) Home Meds: Home Meds Simvastatin [Zocor] 20 mg PO BEDTIME 05/14/13 [History] Aspirin [Halfprin] 81 mg PO QAM 02/06/15 [History] Multivitamins,Therapeutic [Thera] 1 tab PO BID 02/06/15 [History] Gabapentin 300 mg PO TID PRN 12/21/15 [History] Ondansetron 4 mg PO Q6HR PRN 06/16/16 [History] diphenhydrAMINE [Benadryl] 25 mg PO Q4H PRN 05/17/17 [History] Citalopram [Citalopram HBr] 40 mg PO DAILY 08/01/17 [History] Esomeprazole Magnesium 40 mg PO DAILY 08/01/17 [History] Ibuprofen 800 mg PO TID PRN 08/01/17 [History] FLUoxetine HCl [Prozac] 20 mg PO DAILY 05/19/18 [History] Naproxen 500 mg PO ASDIRECTED 05/19/18 [History] traMADol HCl [Tramadol HCl] 50 mg PO Q6H PRN 05/19/18 [History] Doxycycline Monohydrate 06/04/18 [History] Past Medical History HEENT History: Reports: Cataract, Impaired Vision Cardiovascular History: Reports: High Cholesterol, Other (See Below) Other Cardiovascular History: EDEMA IN LEGS Respiratory History: Reports: Pneumonia, Recurrent Gastrointestinal History: Reports: Gastritis, GERD Genitourinary History: Reports: Renal Calculus, UTI, Recurrent Other Genitourinary History: Current treatment for yeast 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, Musculoskeletal History: Reports: Back Pain, Chronic, Fracture Other Musculoskeletal History: R hip pain Neurological History: Reports: Migraines, MS Psychiatric History: Reports: Anxiety, Depression Endocrine/Metabolic History: Reports: Obesity/BMI 30+ Hematologic History: Reports: Anemia Immunologic History: Reports: None Oncologic (Cancer) History: Reports: None Dermatologic History: Reports: Other (See Below) Other Dermatologic History: recurrent treatment for yeast - Infectious Disease History Infectious Disease History: Reports: Chicken Pox, Measles - Past Surgical History HEENT Surgical History: Reports: Adenoidectomy, Cataract Surgery, Tonsillectomy , Visual GI Surgical History: Reports: Appendectomy, Bariatric Procedure, Cholecystectomy , Colonoscopy Female Surgical History: Reports: Hysterectomy, Salpingo-Oophorectomy, Tubal Ligation Musculoskeletal Surgical History: Reports: Carpal Tunnel, Shoulder Surgery Social & Family History - Family History Family Medical History: Noncontributory - Tobacco Use Smoking Status *Q: Never Smoker - Caffeine Use Caffeine Use: Reports: Soda Review of Systems - Review of Systems Review Of Systems: ROS reveals no pertinent complaints other than HPI. Constitutional: Denies: Fever ED EXAM, GENERAL - Physical Exam Exam: See Below Exam Limited By: No Limitations General Appearance: Alert, Moderate Distress (Becomes tearful when describing pain), Obese Extremities: Other (RT shoulder joint capsule uniformly tender. No definite effusion but very obese. Tender AC joint. Able to abduct to70-80 deg. extends to about 45 deg. No redness or increased warmth. Patient very tearful during exam and it seems shoulder is very tender.) Course - Vital Signs Last Recorded V/S: Last Vital Signs Temp 36.5 C 06/04/18 18:23 Pulse 81 06/04/18 18:23 Resp 14 06/04/18 18:23 BP 140/69 06/04/18 18:23 Pulse Ox 97 06/04/18 18:23 - Orders/Labs/Meds Orders: Active Orders 24 hr Category Date Time Status Shoulder Comp Rt [CR] Stat Exams 06/04/18 18:49 Taken Labs: Laboratory Tests 06/04/18 06/04/18 06/04/18 Range/Units 19:00 19:00 19:00 WBC 12.3 H (4.5-11.0) K/uL RBC 4.65 (3.30-5.50) M/uL Hgb 12.8 (12.0-15.0) g/dL Hct 40.1 (36.0-48.0) % MCV 86 (80-98) fL MCH 28 (27-31) pg MCHC 32 (32-36) % Plt Count 316 (150-400) K/uL Neut % (Auto) 79 H (36-66) % Lymph % (Auto) 13 L (24-44) % [place] % (Auto) 8 H (2-6) % Eos % (Auto) 0 L (2-4) % Baso % (Auto) 0 (0-1) % ESR 17 (0-25) mm/hr Sodium (140-148) mmol/L Potassium (3.6-5.2) mmol/L Chloride (100-108) mmol/L Carbon Dioxide (21-32) mmol/L Anion Gap (5.0-14.0) mmol/L BUN (7-18) mg/dL Creatinine (0.6-1.0) mg/dL Est Cr Clr Drug Dosing mL/min Estimated GFR (MDRD) (>60) Glucose (74-106) mg/dL Calcium (8.5-10.1) mg/dL C-Reactive Protein 0.56 H (0.0-0.3) mg/dL 06/04/18 Range/Units 19:00 WBC (4.5-11.0) K/uL RBC (3.30-5.50) M/uL Hgb (12.0-15.0) g/dL Hct (36.0-48.0) % MCV (80-98) fL MCH (27-31) pg MCHC (32-36) % Plt Count (150-400) K/uL Neut % (Auto) (36-66) % Lymph % (Auto) (24-44) % [place] % (Auto) (2-6) % Eos % (Auto) (2-4) % Baso % (Auto) (0-1) % ESR (0-25) mm/hr Sodium 141 (140-148) mmol/L Potassium 3.6 (3.6-5.2) mmol/L Chloride 104 (100-108) mmol/L Carbon Dioxide 28 (21-32) mmol/L Anion Gap 8.7 (5.0-14.0) mmol/L BUN 19 H (7-18) mg/dL Creatinine 0.8 (0.6-1.0) mg/dL Est Cr Clr Drug Dosing 56.93 mL/min Estimated GFR (MDRD) > 60 (>60) Glucose 123 H (74-106) mg/dL Calcium 8.4 L (8.5-10.1) mg/dL C-Reactive Protein (0.0-0.3) mg/dL Meds: Medications Discontinued Medications Generic Name Dose Route Start Last Admin Trade Name Freq PRN Reason Stop Dose Admin Hydromorphone HCl 1 mg 06/04/18 19:06 06/04/18 19:17 Dilaudid IM 06/04/18 19:07 1 mg ONETIME ONE Administration Ondansetron HCl 4 mg 06/04/18 19:06 06/04/18 19:17 Zofran Odt PO 06/04/18 19:07 4 mg ONETIME ONE Administration - Radiology Interpretation Free Text/Narrative:: RT shoulder no fxr or dislocation - Re-Assessments/Exams Free Text/Narrative Re-Assessment/Exam: 06/04/18 19:49 She received Dilaudid 1 mg IM and 4mg zofran po. Departure - Departure Time of Disposition: 19:49 Disposition: Home, Self-Care 01 Condition: Fair Clinical Impression: Right shoulder pain - Discharge Information Referrals: Fred Pedersen MD [Primary Care Provider] - Forms: ED Department Discharge Additional Instructions: Keep your arm in the sling if it helps. It may help to loosen the sling. Take Tylenol #3 as needed for pain. May cause sedation. Followup in orthopedic clinic tomorrow or you might even see Dr Pedersen - My Orders Last 24 Hours: My Active Orders 06/04/18 18:49 Shoulder Comp Rt [CR] Stat - Assessment/Plan Last 24 Hours: My Active Orders 06/04/18 18:49 Shoulder Comp Rt [CR] Stat
--- NOTE | 2018-06-05 09:50 | CR ---
Shoulder Comp Rt two-view CLINICAL HISTORY: Pain FINDINGS: There is no acute fracture or dislocation in the right shoulder. Articular surfaces are smo oth. There is some spurring at the AC joint Impression: Limited study No fracture seen Spurring at the AC joint
== END 2018-06-04 20:19 | disposition home or self-care (01) ==
LOC: JP.ED 17:53
DX: M25.511 Pain in right shoulder (principal); E66.9 Obesity, unspecified; Z88.2 Allergy status to sulfonamides; Z88.8 Allergy status to other drugs, medicaments and biological substances
CPT/HCPCS: 36415; 73030; 80048; 85025; 85651; 86140; 96372; 99284; A9270; J1170

== ENCOUNTER 2019-11-05 20:36 | Emergency (ER) | payer MEDICARE, MEDICAID ==
[2019-11-05] MEDS ORDERED: Ketorolac 30 MG/ML SDV IVPUSH ONE (20:58)
--- NOTE | 2019-11-05 20:58 | EDM.PDOC ---
ED HPI GENERAL MEDICAL PROBLEM - General Chief Complaint: Abdominal Pain Stated Complaint: BACK AND SIDE PAINS NOT AN ACCIDENT Time Seen by Provider: 11/05/19 20:45 Source of Information: Reports: Patient, EMS History Limitations: Reports: No Limitations - History of Present Illness INITIAL COMMENTS - FREE TEXT/NARRATIVE: 64-year-old female brought in by EMS with right flank and right lower abdominal pain for the past 2 hours. It was sudden onset and feels a lot like her past kidney stones. She does have some mild dysuria and urgency today. No fevers or chills, no nausea or vomiting. Onset: Sudden Duration: Hour(s): (Symptoms started 2 hours ago) Location: Reports: Abdomen (Right abdomen and right flank) Associated Symptoms: Denies: Chest Pain, Cough, Diaphoresis, Fever/Chills, Loss of Appetite, Nausea/Vomiting, Shortness of Breath Right Flank Pain Score (Numeric/FACES): 9 - Related Data Allergies Allergy/AdvReac Type Severity Reaction Status Date / Time acetaminophen [From Vicodin] Allergy Cannot Verified 11/05/19 20:57 Remember azithromycin Allergy Rash Verified 11/05/19 20:57 cyclobenzaprine HCl Allergy Rash Verified 11/05/19 20:57 [From Flexeril] hydrocodone [From Vicodin] Allergy Cannot Verified 11/05/19 20:57 Remember oxycodone HCl Allergy Rash Verified 11/05/19 20:57 [From OxyContin] Sulfa (Sulfonamide Allergy Rash Verified 11/05/19 20:57 Antibiotics) Home Meds: Home Meds Simvastatin [Zocor] 20 mg PO BEDTIME 05/14/13 [History] Aspirin [Halfprin] 81 mg PO QAM 02/06/15 [History] Multivitamins,Therapeutic [Thera] 1 tab PO BID 02/06/15 [History] Gabapentin 300 mg PO TID PRN 12/21/15 [History] Ondansetron 4 mg PO Q6HR PRN 06/16/16 [History] diphenhydrAMINE [Benadryl] 25 mg PO Q4H PRN 05/17/17 [History] Esomeprazole Magnesium 40 mg PO DAILY 08/01/17 [History] FLUoxetine HCl [Prozac] 20 mg PO DAILY 05/19/18 [History] Past Medical History HEENT History: Reports: Cataract, Impaired Vision Cardiovascular History: Reports: High Cholesterol, Other (See Below) Other Cardiovascular History: EDEMA IN LEGS Respiratory History: Reports: Pneumonia, Recurrent Gastrointestinal History: Reports: Colon Polyp, Gastritis, GERD Genitourinary History: Reports: Renal Calculus, UTI, Recurrent Other Genitourinary History: Current treatment for yeast 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, Musculoskeletal History: Reports: Arthritis, Back Pain, Chronic, Fracture Other Musculoskeletal History: R hip pain Neurological History: Reports: Migraines, MS Psychiatric History: Reports: Anxiety, Depression Endocrine/Metabolic History: Reports: Obesity/BMI 30+ Hematologic History: Reports: Anemia Immunologic History: Reports: None Oncologic (Cancer) History: Reports: None Dermatologic History: Reports: Other (See Below) Other Dermatologic History: recurrent treatment for yeast - Infectious Disease History Infectious Disease History: Reports: Chicken Pox, Measles - Past Surgical History Head Surgeries/Procedures: Reports: None HEENT Surgical History: Reports: Adenoidectomy, Cataract Surgery, Tonsillectomy , Visual Cardiovascular Surgical History: Reports: None Respiratory Surgical History: Reports: None GI Surgical History: Reports: Appendectomy, Bariatric Procedure, Cholecystectomy , Colonoscopy, EGD Female Surgical History: Reports: Hysterectomy, Salpingo-Oophorectomy, Tubal Ligation Neurological Surgical History: Reports: None Musculoskeletal Surgical History: Reports: Carpal Tunnel, Shoulder Surgery Dermatological Surgical History: Reports: None Social & Family History - Family History Family Medical History: Noncontributory - Caffeine Use Caffeine Use: Reports: Soda ED ROS GENERAL - Review of Systems Review Of Systems: See Below Constitutional: Denies: Fever, Chills Respiratory: Denies: Shortness of Breath GI/Abdominal: Denies: Constipation, Nausea, Vomiting : Reports: Flank Pain (Right-sided), Frequency, Urgency Musculoskeletal: Reports: Other (Recent foot surgery) Skin: Reports: No Symptoms ED EXAM, GI/ABD - Physical Exam Exam: See Below Exam Limited By: No Limitations General Appearance: Alert, No Apparent Distress (Looks uncomfortable but not distressed) Eyes: Bilateral: Normal Appearance (No jaundice) Head: Atraumatic Respiratory/Chest: No Respiratory Distress, Lungs Clear Cardiovascular: Regular Rate, Rhythm GI/Abdominal Exam: Soft, Tender (Reacts with tenderness to palpation of the right lower quadrant) Neurological: Alert, Oriented Course - Vital Signs Last Recorded V/S: Last Vital Signs Temp 98.1 F 11/05/19 21:22 Pulse 70 11/05/19 22:27 Resp 18 11/05/19 22:27 BP 112/55 L 11/05/19 22:27 Pulse Ox 95 11/05/19 22:27 - Orders/Labs/Meds Labs: Laboratory Tests 11/05/19 Range/Units 21:25 Urine Color Yellow (YELLOW) Urine Appearance Slightly cloudy A (CLEAR) Urine pH 5.5 (5.0-8.0) Ur Specific Midnight >= 1.030 (1.008-1.030) Urine Protein Negative (NEGATIVE) mg/dL Urine Glucose (UA) Negative (NEGATIVE) mg/dL Urine Ketones Negative (NEGATIVE) mg/dL Urine Occult Blood Negative (NEGATIVE) Urine Nitrite Negative (NEGATIVE) Urine Bilirubin Small H (NEGATIVE) Urine Urobilinogen 0.2 (0.2-1.0) EU/dL Ur Leukocyte Esterase Negative (NEGATIVE) Urine RBC 0-5 (0-5) Urine WBC 0-5 (0-5) Ur Epithelial Cells Rare Amorphous Sediment Not seen Urine Bacteria Moderate Urine Mucus Moderate Meds: Medications Discontinued Medications Generic Name Dose Route Start Last Admin Trade Name Freq PRN Reason Stop Dose Admin Ketorolac Tromethamine 15 mg 11/05/19 20:58 11/05/19 21:10 Toradol IVPUSH 11/05/19 20:59 15 mg ONETIME ONE Administration - Re-Assessments/Exams Free Text/Narrative Re-Assessment/Exam: 11/05/19 23:46 An additional 15 mg of IV Toradol was given in addition to the 15 she received from EMS. A UA was obtained which showed some bacteria but otherwise completely normal, and a CT of the abdomen and pelvis without contrast was ordered which was also completely normal. Patient was reassured. She did not seem to be in significant discomfort while in the emergency room. Departure - Departure Time of Disposition: 23:34 ( 8) Disposition: Home, Self-Care 01 Clinical Impression: Acute right flank pain - Discharge Information Instructions: Flank Pain, Adult Referrals: PCP,None [Primary Care Provider] - Forms: ED Department Discharge Care Plan Goals: Continue your current pain medications, increase activity as tolerated and recheck in 2 to 3 days if not improving satisfactorily. Return sooner if worsening such as fever or increased pain. Sepsis Event Note - Focused Exam Vital Signs: Vital Signs Temp Pulse Resp BP Pulse Ox 11/05/19 22:27 70 18 112/55 L 95 11/05/19 21:22 98.1 F 75 16 109/58 L 94 L 11/05/19 20:43 98.1 F 75 109/58 L 94 L 11/05/19 20:37 80 16 119/59 L 94 L Date Exam was Performed: 11/05/19 Time Exam was Performed: 23:44
[2019-11-05 22:29] VITALS: BP 112/55; PULSE 70
--- NOTE | 2019-11-05 22:42 | CRLCT ---
INDICATION: Right flank pain. TECHNIQUE: CT abdomen and pelvis without contrast. COMPARISON: CT abdomen and pelvis 12/24/2016. FINDINGS: Lower chest: Calcified granuloma in the left lower lobe and mild bibasilar atelectasis. Liver: Unremarkable. Spleen: Low-density lesion measuring 2.8 cm is slightly increased in size but is of doubtful clinical significance. Pancreas: Unremarkable. Gallbladder and bile ducts: Cholecystectomy. Kidneys: 4 mm nonobstructing stone in the upper pole of the left kidney. Bilateral unenhanced kidneys are otherwise unremarkable. No ureteral stones or hydroureteronephrosis. Adrenal glands: Unremarkable. GI tract: No bowel obstruction or focal inflammatory changes involving the GI tract. No free air or free fluid. Fecal loading of the colon. Vascular structures: Mild atherosclerotic disease. No abdominal aortic aneurysm. Lymph nodes: Unremarkable. Pelvic Organs: Hysterectomy. Bladder as imaged is unremarkable. Bones: Degenerative changes of the spine and pelvis. IMPRESSION: 1. No acute intra-abdominal or pelvic abnormality. 2. Nonobstructing stone upper pole left kidney measures 4 mm. 3. Fecal loading of the colon. Please note that all CT scans at this facility use dose modulation, iterative, reconstruction, and\or weight based dosing when appropriate to reduce radiation to as low as reasonably achievable. Dictated by Juan Ramon Feliciano MD @ 11/05/2019 10:40:00 PM Dictated by: Juan Ramon Feliciano MD @ 11/05/2019 22:40:14 (Electronically Signed) [facility] [place] [facility]
== END 2019-11-05 23:35 | disposition home or self-care (01) ==
LOC: JP.ED 20:36
DX: R10.31 Right lower quadrant pain (principal); Z90.49 Acquired absence of other specified parts of digestive tract; Z98.84 Bariatric surgery status; Z90.710 Acquired absence of both cervix and uterus; Z98.51 Tubal ligation status; Z88.2 Allergy status to sulfonamides; Z88.8 Allergy status to other drugs, medicaments and biological substances; Z79.82 Long term (current) use of aspirin; Z88.1 Allergy status to other antibiotic agents; E66.9 Obesity, unspecified; F41.9 Anxiety disorder, unspecified; F32.9 Major depressive disorder, single episode, unspecified; Z79.899 Other long term (current) drug therapy; Z98.49 Cataract extraction status, unspecified eye; Z98.890 Other specified postprocedural states
CPT/HCPCS: 74176; 81001; 96374; 99285; J1885

== ENCOUNTER 2020-06-02 18:24 | Emergency (ER) | payer MEDICARE ==
[2020-06-02 18:46] VITALS: BP 120/87; PULSE 96
[2020-06-02] MEDS ORDERED: Bacitracin Oint 1 GM U/D Packet TOP ONE (18:54)
--- NOTE | 2020-06-02 18:59 | EDM.PDOC ---
ED HPI GENERAL MEDICAL PROBLEM - General Chief Complaint: Burn Stated Complaint: BURN ON RT HAND,RT LEG AND FOOT Time Seen by Provider: 06/02/20 18:54 Source of Information: Reports: Patient History Limitations: Reports: No Limitations - History of Present Illness INITIAL COMMENTS - FREE TEXT/NARRATIVE: pt was making soup and she spilled it and she now has some stinging on the rt hand and the rt knee. Onset: Today, Sudden Duration: Hour(s): Location: Reports: Upper Extremity, Right, Lower Extremity, Right Associated Symptoms: Reports: No Other Symptoms - Related Data Allergies Allergy/AdvReac Type Severity Reaction Status Date / Time acetaminophen [From Vicodin] Allergy Cannot Verified 06/02/20 18:45 Remember azithromycin Allergy Rash Verified 06/02/20 18:45 cyclobenzaprine HCl Allergy Rash Verified 06/02/20 18:45 [From Flexeril] hydrocodone [From Vicodin] Allergy Cannot Verified 06/02/20 18:45 Remember oxycodone HCl Allergy Rash Verified 06/02/20 18:45 [From OxyContin] Sulfa (Sulfonamide Allergy Rash Verified 06/02/20 18:45 Antibiotics) Home Meds: Home Meds Simvastatin [Zocor] 20 mg PO BEDTIME 05/14/13 [History] Aspirin [Halfprin] 81 mg PO QAM 02/06/15 [History] Multivitamins,Therapeutic [Thera] 1 tab PO BID 02/06/15 [History] Gabapentin 300 mg PO TID PRN 12/21/15 [History] Ondansetron 4 mg PO Q6HR PRN 06/16/16 [History] diphenhydrAMINE [Benadryl] 25 mg PO Q4H PRN 05/17/17 [History] Esomeprazole Magnesium 40 mg PO DAILY 08/01/17 [History] FLUoxetine HCl [Prozac] 20 mg PO DAILY 05/19/18 [History] Past Medical History HEENT History: Reports: Cataract, Impaired Vision Cardiovascular History: Reports: High Cholesterol, Other (See Below) Other Cardiovascular History: EDEMA IN LEGS Respiratory History: Reports: Pneumonia, Recurrent Gastrointestinal History: Reports: Colon Polyp, Gastritis, GERD Genitourinary History: Reports: Renal Calculus, UTI, Recurrent Other Genitourinary History: Current treatment for yeast [employer] History: Reports: Dysfunctional Uterine Bleeding, Musculoskeletal History: Reports: Arthritis, Back Pain, Chronic, Fracture Other Musculoskeletal History: R hip pain Neurological History: Reports: Migraines, MS Psychiatric History: Reports: Anxiety, Depression Endocrine/Metabolic History: Reports: Obesity/BMI 30+ Hematologic History: Reports: Anemia Immunologic History: Reports: None Oncologic (Cancer) History: Reports: None Dermatologic History: Reports: Other (See Below) Other Dermatologic History: recurrent treatment for yeast - Infectious Disease History Infectious Disease History: Reports: Chicken Pox, Measles - Past Surgical History Head Surgeries/Procedures: Reports: None HEENT Surgical History: Reports: Adenoidectomy, Cataract Surgery, Tonsillectomy, Visual Cardiovascular Surgical History: Reports: None Respiratory Surgical History: Reports: None GI Surgical History: Reports: Appendectomy, Bariatric Procedure, Cholecystectomy, Colonoscopy, EGD Female Surgical History: Reports: Hysterectomy, Salpingo-Oophorectomy, Tubal Ligation Neurological Surgical History: Reports: None Musculoskeletal Surgical History: Reports: Carpal Tunnel, Shoulder Surgery Dermatological Surgical History: Reports: None Social & Family History - Family History Family Medical History: Noncontributory - Tobacco Use Smoking Status *Q: Never Smoker - Caffeine Use Caffeine Use: Reports: Soda ED ROS GENERAL - Review of Systems Review Of Systems: See Below Constitutional: Reports: No Symptoms HEENT: Reports: No Symptoms Respiratory: Reports: No Symptoms Cardiovascular: Reports: No Symptoms Endocrine: Reports: No Symptoms GI/Abdominal: Reports: No Symptoms : Reports: No Symptoms Musculoskeletal: Reports: No Symptoms Skin: Reports: Other ( sting on the dorsum of the rt hand and over the rt knee. This did not look red or blistered. This is more of a skin irritation from the hot solution. ) Neurological: Reports: No Symptoms ED EXAM, BURN/SMOKE INHALATION - Physical Exam Exam: See Below Text/Narrative:: pt arrived with stinging over the dorsum of the rt hand and the rt knee. Exam Limited By: No Limitations General Appearance: Alert, Anxious Ears (Abbreviated): Normal TMs Mouth/Throat: No Symptoms Reported Head: No Symptoms Neck: No Symptoms Respiratory: No Respiratory Distress Cardiovascular: Regular Rate, Rhythm Course - Vital Signs Last Recorded V/S: Last Vital Signs Temp 36.8 C 06/02/20 18:46 Pulse 96 06/02/20 18:46 Resp 18 06/02/20 18:46 BP 120/87 06/02/20 18:46 Pulse Ox 96 06/02/20 18:46 - Orders/Labs/Meds Orders: Active Orders 24 hr Category Date Time Status Bacitracin [Bacitracin Oint 1 GM] Med 06/02/20 18:54 Once 1 dose TOP ONETIME ONE Medication Orders Bacitracin (Bacitracin Oint 1 Gm) 1 dose TOP ONETIME ONE Stop: 06/02/20 18:55 Meds: Medications Generic Name Dose Route Start Last Admin Trade Name Leann PRN Reason Stop Dose Admin Bacitracin 1 dose 06/02/20 18:54 Bacitracin Oint 1 Gm TOP 06/02/20 18:55 ONETIME ONE - Re-Assessments/Exams Free Text/Narrative Re-Assessment/Exam: 06/02/20 18:58 areas were dressed with bacatracin . She was advised that this would be better tomorrow. Departure - Departure Time of Disposition: 18:58 Disposition: Home, Self-Care 01 Condition: Fair Clinical Impression: Irritation symptom of skin - Discharge Information Referrals: Fred Pedersen MD [Primary Care Provider] - Care Plan Goals: apply bacatracin to the area. Sepsis Event Note (ED) - Evaluation Sepsis Screening Result: No Definite Risk - Focused Exam Vital Signs: Vital Signs Temp Pulse Resp BP Pulse Ox 06/02/20 18:46 36.8 C 96 18 120/87 96 06/02/20 18:45 36.8 C 96 18 120/87 96 - My Orders Last 24 Hours: My Active Orders 06/02/20 18:54 Bacitracin [Bacitracin Oint 1 GM] 1 dose TOP ONETIME ONE - Assessment/Plan Last 24 Hours: My Active Orders 06/02/20 18:54 Bacitracin [Bacitracin Oint 1 GM] 1 dose TOP ONETIME ONE
== END 2020-06-02 19:10 | disposition home or self-care (01) ==
LOC: JP.ED 18:24
DX: L98.8 Other specified disorders of the skin and subcutaneous tissue (principal); E78.00 Pure hypercholesterolemia, unspecified; M19.90 Unspecified osteoarthritis, unspecified site; F41.9 Anxiety disorder, unspecified; F32.9 Major depressive disorder, single episode, unspecified; E66.9 Obesity, unspecified; G35 Multiple sclerosis; K21.9 Gastro-esophageal reflux disease without esophagitis; Z88.6 Allergy status to analgesic agent; Z88.1 Allergy status to other antibiotic agents; Z88.5 Allergy status to narcotic agent; Z88.2 Allergy status to sulfonamides; Z79.82 Long term (current) use of aspirin; Z79.899 Other long term (current) drug therapy; Z68.35 Body mass index [BMI] 35.0-35.9, adult
CPT/HCPCS: 16000; 99282; 99283

== ENCOUNTER 2021-03-02 10:15 | Emergency (ER) | payer MEDICARE ==
[2021-03-02 10:39] VITALS: BP 122/75; PULSE 94
[2021-03-02] MEDS ORDERED: traMADol 50 MG Tab PO ONE (11:15)
--- NOTE | 2021-03-02 11:18 | EDM.PDOC ---
ED HPI GENERAL MEDICAL PROBLEM - General Chief Complaint: Skin Complaint Stated Complaint: BLISTER POPPED ON LEFT FOOT Time Seen by Provider: 03/02/21 11:00 Source of Information: Reports: Patient History Limitations: Reports: No Limitations - History of Present Illness INITIAL COMMENTS - FREE TEXT/NARRATIVE: 65 yo non-diabetic female recently popped a L heel blister. Has pain and concern it may be infected. Has an appt to see Dr. Pedersen tomorrow. 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) - Related Data Allergies Allergy/AdvReac Type Severity Reaction Status Date / Time acetaminophen [From Vicodin] Allergy Cannot Verified 03/02/21 10:55 Remember azithromycin Allergy Rash Verified 03/02/21 10:55 cyclobenzaprine HCl Allergy Rash Verified 03/02/21 10:55 [From Flexeril] hydrocodone [From Vicodin] Allergy Cannot Verified 03/02/21 10:55 Remember oxycodone HCl Allergy Rash Verified 03/02/21 10:55 [From OxyContin] Sulfa (Sulfonamide Allergy Rash Verified 03/02/21 10:55 Antibiotics) Home Meds: Home Meds Simvastatin [Zocor] 20 mg PO BEDTIME 05/14/13 [History] Aspirin [Halfprin] 81 mg PO QAM 02/06/15 [History] Multivitamins,Therapeutic [Thera] 1 tab PO BID 02/06/15 [History] Gabapentin 300 mg PO TID PRN 12/21/15 [History] diphenhydrAMINE [Benadryl] 25 mg PO Q4H PRN 05/17/17 [History] Esomeprazole Magnesium 40 mg PO DAILY 08/01/17 [History] FLUoxetine HCl [Prozac] 20 mg PO DAILY 05/19/18 [History] cephALEXin [Cephalexin] 500 mg PO Q6H #30 tablet 03/02/21 [Rx] traMADol [Ultram] 50 - 100 mg PO Q6H PRN #10 tab 07/05/21 [Rx] Past Medical History HEENT History: Reports: Cataract, Impaired Vision Cardiovascular History: Reports: High Cholesterol, Other (See Below) Other Cardiovascular History: EDEMA IN LEGS Respiratory History: Reports: Pneumonia, Recurrent Gastrointestinal History: Reports: Colon Polyp, Gastritis, GERD Genitourinary History: Reports: Renal Calculus, UTI, Recurrent Other Genitourinary History: Current treatment for yeast 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, Musculoskeletal History: Reports: Arthritis, Back Pain, Chronic, Fracture Other Musculoskeletal History: R hip pain Neurological History: Reports: Migraines, MS Psychiatric History: Reports: Anxiety, Depression Endocrine/Metabolic History: Reports: Obesity/BMI 30+ Hematologic History: Reports: Anemia Immunologic History: Reports: None Oncologic (Cancer) History: Reports: None Dermatologic History: Reports: Other (See Below) Other Dermatologic History: recurrent treatment for yeast - Infectious Disease History Infectious Disease History: Reports: Chicken Pox, Measles - Past Surgical History Head Surgeries/Procedures: Reports: None HEENT Surgical History: Reports: Adenoidectomy, Cataract Surgery, Tonsillectomy, Visual Cardiovascular Surgical History: Reports: None Respiratory Surgical History: Reports: None GI Surgical History: Reports: Appendectomy, Bariatric Procedure, Cholecystectomy, Colonoscopy, EGD Other GI Surgeries/Procedures: lap band then removed Female Surgical History: Reports: Hysterectomy, Salpingo-Oophorectomy, Tubal Ligation Endocrine Surgical History: Reports: None Neurological Surgical History: Reports: None Musculoskeletal Surgical History: Reports: Carpal Tunnel, Shoulder Surgery Other Musculoskeletal Surgeries/Procedures:: ankle surgery screws and a plate after falling had 2 failed surgeries and 1 successful Dermatological Surgical History: Reports: None Social & Family History - Family History Family Medical History: No Pertinent Family History - Tobacco Use Tobacco Use Status *Q: Never Tobacco User Second Hand Smoke Exposure: No - Caffeine Use Caffeine Use: Reports: None - Recreational Drug Use Recreational Drug Use: No ED ROS GENERAL - Review of Systems Review Of Systems: See Below Constitutional: Reports: No Symptoms Musculoskeletal: Reports: Foot Pain (L heel) Skin: Reports: Erythema (red around bister) Neurological: Reports: No Symptoms ED EXAM, SKIN/RASH Exam: See Below Exam Limited By: No Limitations General Appearance: Alert, WD/WN, No Apparent Distress Extremities: Other (There is a non-intact, dried out appearing blister on the L heel. There is surrounding erythema and tenderness. No prox streaking. ) Neurological: Alert, Oriented, CN II-XII Intact, Normal Cognition, No Motor/Sensory Deficits Psychiatric: Normal Affect, Normal Mood Skin: Erythema (L heel around a non-intact blister) Location, Skin: Lower Extremity, Left Characteristics: Erythematous Associated features: Tenderness Course - Vital Signs Last Recorded V/S: Last Vital Signs Temp 36.6 C 03/02/21 10:57 Pulse 94 03/02/21 10:57 Resp BP 122/75 03/02/21 10:57 Pulse Ox 97 03/02/21 10:57 Departure - Departure Time of Disposition: 11:20 Disposition: Home, Self-Care 01 Condition: Fair Clinical Impression: Blister of foot Qualifiers: Encounter type: initial encounter Laterality: left Qualified Code(s): S90.822A - Blister (nonthermal), left foot, initial encounter - Discharge Information *PRESCRIPTION DRUG MONITORING PROGRAM REVIEWED*: Yes *COPY OF PRESCRIPTION DRUG MONITORING REPORT IN PATIENT XAVIER: Yes Referrals: Fred Pedersen MD [Primary Care Provider] - Additional Instructions: Soak your foot in warm water with soap 2-3 times per day. Take ibuprofen and if needed Tramadol for pain relief. Use the cephalexin for potential infection. Recheck with your doctor tomorrow as scheduled. Sepsis Event Note (ED) - Evaluation Sepsis Screening Result: No Definite Risk - Focused Exam Vital Signs: Vital Signs Temp Pulse BP Pulse Ox 03/02/21 10:57 36.6 C 94 122/75 97 03/02/21 10:37 36.6 C 94 122/75 97
== END 2021-03-02 11:29 | disposition home or self-care (01) ==
LOC: JP.ED 10:15
DX: S90.822A Blister (nonthermal), left foot, initial encounter (principal); E78.00 Pure hypercholesterolemia, unspecified; K21.9 Gastro-esophageal reflux disease without esophagitis; M19.90 Unspecified osteoarthritis, unspecified site; E66.9 Obesity, unspecified; Z68.45 Body mass index [BMI] 70 or greater, adult; Z88.5 Allergy status to narcotic agent; Z88.2 Allergy status to sulfonamides; Z88.6 Allergy status to analgesic agent; Z88.1 Allergy status to other antibiotic agents; Z88.8 Allergy status to other drugs, medicaments and biological substances; Z79.82 Long term (current) use of aspirin; Z79.899 Other long term (current) drug therapy; X58.XXXA Exposure to other specified factors, initial encounter
CPT/HCPCS: 99283; A9270

== ENCOUNTER 2021-05-02 14:21 | Emergency (ER) | payer MEDICARE ==
[2021-05-02] MEDS ORDERED: Ketorolac 30 MG/ML SDV IVPUSH ONE (15:46)
[2021-05-02] MEDS ORDERED: Lactated Ringers 1,000 ML IV ONE (15:46)
[2021-05-02] MEDS ORDERED: diphenhydrAMINE 50 MG/ML SDV IVPUSH ONE (15:47)
[2021-05-02] MEDS ORDERED: Prochlorperazine 10 MG/2 ML SDV IVPUSH ONE (15:47)
--- NOTE | 2021-05-02 15:54 | EDM.PDOC ---
ED HPI GENERAL MEDICAL PROBLEM - General Chief Complaint: Headache Stated Complaint: HEADACHE LEFT SIDE BACK AND LEG PAIN Time Seen by Provider: 05/02/21 15:35 Source of Information: Reports: Patient, Old Records History Limitations: Reports: No Limitations - History of Present Illness INITIAL COMMENTS - FREE TEXT/NARRATIVE: 66 yo female arrives via EMS for a L congregational CHOWDHURY that is not like her usual CHOWDHURY's. It is associated with some nausea and vomiting. There was no trauma. She also mentions that her back and L leg are bothering her. She has chronic back pain and radiculopathy. She took Tylenol #3 one dose without benefit before arrival. Onset: Today, Sudden Onset Date: 05/02/21 Duration: Minutes: (headache sx, the other sx's are chronic), Constant Location: Reports: Head Quality: Reports: Ache Severity: Moderate Improves with: Reports: None Worsens with: Reports: Other (unsure) Context: Reports: Other (See HPI) Associated Symptoms: Reports: Headaches, Nausea/Vomiting. Denies: Diaphoresis, Fever/Chills, Rash, Shortness of Breath Treatments [employer]: Reports: Other (see below) (Tylenol #3) - Related Data Allergies Allergy/AdvReac Type Severity Reaction Status Date / Time acetaminophen [From Vicodin] Allergy Cannot Verified 05/02/21 15:58 Remember azithromycin Allergy Rash Verified 05/02/21 15:58 cyclobenzaprine HCl Allergy Rash Verified 05/02/21 15:58 [From Flexeril] hydrocodone [From Vicodin] Allergy Rash Verified 05/02/21 15:58 oxycodone HCl Allergy Rash Verified 05/02/21 15:58 [From OxyContin] Sulfa (Sulfonamide Allergy Rash Verified 05/02/21 15:58 Antibiotics) Home Meds: Home Meds Simvastatin [Zocor] 20 mg PO BEDTIME 05/14/13 [History] Aspirin [Halfprin] 81 mg PO QAM 02/06/15 [History] Multivitamins,Therapeutic [Thera] 1 tab PO BID 02/06/15 [History] Gabapentin 300 mg PO TID PRN 12/21/15 [History] diphenhydrAMINE [Benadryl] 25 mg PO Q4H PRN 05/17/17 [History] Esomeprazole Magnesium 40 mg PO DAILY 08/01/17 [History] FLUoxetine HCl [Prozac] 40 mg PO DAILY 05/19/18 [History] Past Medical History HEENT History: Reports: Cataract, Impaired Vision Cardiovascular History: Reports: High Cholesterol, Other (See Below) Other Cardiovascular History: EDEMA IN LEGS Respiratory History: Reports: Pneumonia, Recurrent Gastrointestinal History: Reports: Colon Polyp, Gastritis, GERD Genitourinary History: Reports: Renal Calculus, UTI, Recurrent Other Genitourinary History: Current treatment for yeast [employer] AGENT History: Reports: Dysfunctional Uterine Bleeding, Musculoskeletal History: Reports: Arthritis, Back Pain, Chronic, Fracture Other Musculoskeletal History: R hip pain Neurological History: Reports: Migraines, MS Psychiatric History: Reports: Anxiety, Depression Endocrine/Metabolic History: Reports: Obesity/BMI 30+ Hematologic History: Reports: Anemia Immunologic History: Reports: None Oncologic (Cancer) History: Reports: None Dermatologic History: Reports: Other (See Below) Other Dermatologic History: recurrent treatment for yeast - Infectious Disease History Infectious Disease History: Reports: Chicken Pox, Measles - Past Surgical History Head Surgeries/Procedures: Reports: None HEENT Surgical History: Reports: Adenoidectomy, Cataract Surgery, Tonsillectomy, Visual Cardiovascular Surgical History: Reports: None Respiratory Surgical History: Reports: None GI Surgical History: Reports: Appendectomy, Bariatric Procedure, Cholecystectomy, Colonoscopy, EGD Other GI Surgeries/Procedures: lap band then removed Female Surgical History: Reports: Hysterectomy, Salpingo-Oophorectomy, Tubal Ligation Endocrine Surgical History: Reports: None Neurological Surgical History: Reports: None Musculoskeletal Surgical History: Reports: Carpal Tunnel, Shoulder Surgery Other Musculoskeletal Surgeries/Procedures:: ankle surgery screws and a plate after falling had 2 failed surgeries and 1 successful Dermatological Surgical History: Reports: None Social & Family History - Family History Family Medical History: No Pertinent Family History - Caffeine Use Caffeine Use: Reports: None ED ROS GENERAL - Review of Systems Review Of Systems: See Below Constitutional: Reports: No Symptoms HEENT: Reports: No Symptoms Respiratory: Reports: No Symptoms Cardiovascular: Reports: No Symptoms GI/Abdominal: Reports: Nausea, Vomiting. Denies: Diarrhea : Reports: Flank Pain (left) Musculoskeletal: Reports: Back Pain Skin: Reports: No Symptoms Neurological: Reports: Other (radicular pain to the left leg) - Physical Exam Exam: See Below Exam Limited By: No Limitations General Appearance: Alert, WD/WN, No Apparent Distress, Obese Eye Exam: Bilateral Eye: Normal Inspection Ears: Normal External Exam, Normal Canal, Hearing Grossly Normal, Normal TMs Nose: Normal Inspection, No Blood Throat/Mouth: Normal Inspection, Normal Lips, Normal Oropharynx, Normal Voice, No Airway Compromise Head Exam: Atraumatic, Normocephalic, Facial Tenderness (L congregational area on palpation). No: Scalp Tenderness (L congregational area with palpation), Facial Abrasions, Facial Ecchymosis, Facial Swelling Neck: Normal Inspection Respiratory/Chest: No Respiratory Distress, Lungs Clear, Normal Breath Sounds, No Accessory Muscle Use Cardiovascular: Regular Rate, Rhythm, No Edema GI/Abdominal: Soft, Non-Tender Neuro Exam (Abbreviated): Alert, Oriented, CN II-XII Intact, Normal Cognition, No Motor/Sensory Deficits Back Exam: Normal Inspection. No: CVA Tenderness (R), CVA Tenderness (L) Extremities: Normal Inspection, Normal Range of Motion, Non-Tender, No Pedal Edema Psychiatric: Normal Affect, Normal Mood Skin Exam: Warm, Dry, Intact, Normal Color, No Rash Course - Vital Signs Last Recorded V/S: Last Vital Signs Temp 36.3 C 05/02/21 15:15 Pulse 61 05/02/21 16:37 Resp 14 05/02/21 16:37 BP 122/54 L 05/02/21 16:37 Pulse Ox 99 05/02/21 16:37 - Orders/Labs/Meds Labs: Laboratory Tests 05/02/21 05/02/21 Range/Units 16:02 16:05 ESR 10 (0-25) mm/hr Urine Color Yellow (YELLOW) Urine Appearance Slightly cloudy A (CLEAR) Urine pH 6.0 (5.0-8.0) Ur Specific [place] >= 1.030 (1.008-1.030) Urine Protein Negative (NEGATIVE) mg/dL Urine Glucose (UA) Negative (NEGATIVE) mg/dL Urine Ketones Negative (NEGATIVE) mg/dL Urine Occult Blood Trace-intact H (NEGATIVE) Urine Nitrite Negative (NEGATIVE) Urine Bilirubin Negative (NEGATIVE) Urine Urobilinogen 0.2 (0.2-1.0) EU/dL Ur Leukocyte Esterase Negative (NEGATIVE) Urine RBC 5-10 H (0-5) Urine WBC 0-5 (0-5) Ur Epithelial Cells Few Amorphous Sediment Not seen Urine Bacteria Rare Urine Mucus Few Meds: Medications Discontinued Medications Generic Name Dose Route Start Last Admin Trade Name Leann PRN Reason Stop Dose Admin Diphenhydramine HCl 25 mg 05/02/21 15:47 05/02/21 16:23 Diphenhydramine 50 Mg/Ml Sdv IVPUSH 05/02/21 15:48 25 mg ONETIME ONE Administration Lactated Ringer's 1,000 mls @ 1,000 mls/hr 05/02/21 15:46 05/02/21 16:24 Ringers, Lactated IV 05/02/21 16:45 1,000 mls/hr BOLUS ONE Administration Ketorolac Tromethamine 30 mg 05/02/21 15:46 05/02/21 16:26 Ketorolac 30 Mg/Ml Sdv IVPUSH 05/02/21 15:47 30 mg ONETIME ONE Administration Prochlorperazine Edisylate 10 mg 05/02/21 15:47 05/02/21 16:26 Prochlorperazine 10 Mg/2 Ml Sdv IVPUSH 05/02/21 15:48 10 mg ONETIME ONE Administration - Re-Assessments/Exams Free Text/Narrative Re-Assessment/Exam: 05/02/21 16:51 Is feeling better at this point, nausea gone, CHOWDHURY reduced. Departure - Departure Time of Disposition: 17:25 Disposition: Home, Self-Care 01 Condition: Good Clinical Impression: Mild dehydration Migraine headache Qualifiers: Migraine type: unspecified Status migrainosus presence: without status migrainosus Intractability: not intractable Qualified Code(s): G43.909 - Migraine, unspecified, not intractable, without status migrainosus - Discharge Information *PRESCRIPTION DRUG MONITORING PROGRAM REVIEWED*: Not Applicable *COPY OF PRESCRIPTION DRUG MONITORING REPORT IN PATIENT XAVIER: Not Applicable Instructions: Migraine Headache, [id number] Referrals: Fred Pedersen MD [Primary Care Provider] - Forms: ED Department Discharge Additional Instructions: Drink enough fluids so that your urine is light yellow in color. No driving today. Recheck with your provider as needed. Sepsis Event Note (ED) - Focused Exam Vital Signs: Vital Signs Temp Pulse Resp BP Pulse Ox 05/02/21 16:37 61 14 122/54 L 99 05/02/21 15:15 36.3 C 79 16 119/47 L 96
[2021-05-02 16:40] VITALS: BP 122/54; PULSE 61
== END 2021-05-02 17:44 | disposition home or self-care (01) ==
LOC: JP.ED 14:21
DX: G43.909 Migraine, unspecified, not intractable, without status migrainosus (principal); E86.0 Dehydration; E78.00 Pure hypercholesterolemia, unspecified; K21.9 Gastro-esophageal reflux disease without esophagitis; M19.90 Unspecified osteoarthritis, unspecified site; E66.9 Obesity, unspecified; Z68.36 Body mass index [BMI] 36.0-36.9, adult; Z88.1 Allergy status to other antibiotic agents; Z88.5 Allergy status to narcotic agent; Z88.2 Allergy status to sulfonamides; Z88.6 Allergy status to analgesic agent; Z88.8 Allergy status to other drugs, medicaments and biological substances; Z79.82 Long term (current) use of aspirin; Z79.899 Other long term (current) drug therapy
CPT/HCPCS: 36415; 81001; 85651; 96374; 96375; 99284; J0780; J1200; J1885; J7120

== ENCOUNTER 2021-09-12 16:56 | Emergency (ER) | payer MEDICARE ==
[2021-09-12 17:39] VITALS: BP 142/60; PULSE 89
[2021-09-12 18:42] LABS: CORONAVIRUS COVID-19 NAA NEGATIVE (NEGATIVE)
== END 2021-09-12 19:49 | disposition home or self-care (01) ==
LOC: JP.ED 16:56
DX: B34.9 Viral infection, unspecified (principal); E78.00 Pure hypercholesterolemia, unspecified; E66.9 Obesity, unspecified; Z68.35 Body mass index [BMI] 35.0-35.9, adult; Z88.1 Allergy status to other antibiotic agents; Z88.2 Allergy status to sulfonamides; Z88.5 Allergy status to narcotic agent; Z88.8 Allergy status to other drugs, medicaments and biological substances; Z79.82 Long term (current) use of aspirin; Z79.899 Other long term (current) drug therapy; Z20.822 Contact with and (suspected) exposure to COVID-19
CPT/HCPCS: 0241U; 36415; 71045; 80053; 83605; 85025; 86140; 99284; 99285

== ENCOUNTER 2021-12-22 06:43 | Emergency (ER) | payer MEDICARE ==
[2021-12-22] MEDS ORDERED: Ketorolac 30 MG/ML SDV IM ONE (07:05)
[2021-12-22] MEDS ORDERED: traMADol 50 MG Tab PO ONE (07:06)
[2021-12-22 07:37] LABS: TROPONIN I HIGH SENSITIVITY 4.9 pg/mL (<=60.3)
[2021-12-22] MEDS ORDERED: Sodium Chloride 0.9% 1,000 ML IV SCH (08:00)
[2021-12-22] MEDS ORDERED: Morphine 4 MG/ML Syringe IVPUSH ONE (08:00)
[2021-12-22] MEDS ORDERED: Sodium Chloride 0.9% 10 ML Syringe FLUSH PRN ×2 (08:00→08:11)
[2021-12-22] MEDS ORDERED: diphenhydrAMINE 50 MG/ML SDV IVPUSH ONE (08:01)
[2021-12-22] MEDS ORDERED: Iopamidol 755 Mg/ML 100 ML Bottle IV SCH (08:15)
[2021-12-22] MEDS ORDERED: Sodium Chloride 0.9% 75 ML IV SCH (08:15)
[2021-12-22] MEDS ORDERED: Morphine 2 MG/ML SYRINGE IVPUSH ONE (09:54)
[2021-12-22 11:21] VITALS: BP 113/46; PULSE 73
== END 2021-12-22 11:21 | disposition home or self-care (01) ==
LOC: JP.ED 06:43
DX: R07.89 Other chest pain (principal); E78.00 Pure hypercholesterolemia, unspecified; G35 Multiple sclerosis; E66.9 Obesity, unspecified; Z68.34 Body mass index [BMI] 34.0-34.9, adult; Z88.1 Allergy status to other antibiotic agents; Z88.2 Allergy status to sulfonamides; Z88.5 Allergy status to narcotic agent
CPT/HCPCS: 36415; 71045; 71275; 80053; 83605; 84145; 84484; 85025; 85379; 93005; 93010; 96372; 96374; 96375; 96376; 99283; 99285-25; A9270-GY; J1200; J1885; J2270; J3490; J7030; Q9967

== ENCOUNTER 2022-02-13 07:23 | Emergency (ER) | payer MEDICARE ==
[2022-02-13 07:26] VITALS: BP 123/58; PULSE 79
[2022-02-13] MEDS ORDERED: Ketorolac 30 MG/ML SDV IM ONE (07:36)
== END 2022-02-13 08:28 | disposition home or self-care (01) ==
LOC: JP.ED 07:23
DX: M79.671 Pain in right foot (principal); E78.00 Pure hypercholesterolemia, unspecified; K21.9 Gastro-esophageal reflux disease without esophagitis; E66.9 Obesity, unspecified; Z68.36 Body mass index [BMI] 36.0-36.9, adult; Z79.899 Other long term (current) drug therapy
CPT/HCPCS: 73630; 96372; 99281; 99283; J1885

== ENCOUNTER 2022-03-18 09:50 | Emergency (ER) | payer MEDICARE ==
[2022-03-18 09:58] VITALS: BP 112/46; PULSE 72
[2022-03-18] MEDS ORDERED: Ketorolac 30 MG/ML SDV IM ONE (10:17)
[2022-03-18] MEDS ORDERED: HYDROmorphone 1 MG/ML Syringe IM ONE (11:57)
== END 2022-03-18 14:45 | disposition home or self-care (01) ==
LOC: JP.ED 09:50
DX: M25.551 Pain in right hip (principal); E78.00 Pure hypercholesterolemia, unspecified; K21.9 Gastro-esophageal reflux disease without esophagitis; E66.9 Obesity, unspecified; Z68.33 Body mass index [BMI] 33.0-33.9, adult; Z88.1 Allergy status to other antibiotic agents; Z88.8 Allergy status to other drugs, medicaments and biological substances; Z88.5 Allergy status to narcotic agent; Z88.2 Allergy status to sulfonamides; Z79.899 Other long term (current) drug therapy; Z79.82 Long term (current) use of aspirin; Z90.49 Acquired absence of other specified parts of digestive tract; Z90.710 Acquired absence of both cervix and uterus
CPT/HCPCS: 73502; 96372; 99283; J1170; J1885

== ENCOUNTER 2022-06-12 09:33 | Emergency (ER) | payer MEDICARE ==
[2022-06-12] MEDS ORDERED: Ketorolac 30 MG/ML SDV IM ONE (11:36)
[2022-06-12 11:51] VITALS: BP 130/63; PULSE 75
[2022-06-12] MEDS ORDERED: Acetaminophen/Codeine 300-30 MG Tab PO ONE (12:58)
== END 2022-06-12 13:40 | disposition home or self-care (01) ==
LOC: JP.ED 09:33
DX: M54.41 Lumbago with sciatica, right side (principal); K21.9 Gastro-esophageal reflux disease without esophagitis; E78.00 Pure hypercholesterolemia, unspecified; E66.9 Obesity, unspecified; Z68.34 Body mass index [BMI] 34.0-34.9, adult; Z88.1 Allergy status to other antibiotic agents; Z88.2 Allergy status to sulfonamides; Z88.5 Allergy status to narcotic agent; Z88.8 Allergy status to other drugs, medicaments and biological substances; Z79.82 Long term (current) use of aspirin; Z79.899 Other long term (current) drug therapy
CPT/HCPCS: 74176; 81001; 96372; 99283; A9270; J1885

== ENCOUNTER 2022-07-20 07:15 | Inpatient (IN) | payer MEDICARE ==
[~2022-07-20 07:15] MED LIST: Bupivacaine 0.5%/EPINEPHrine 1:200,000 50 ML MDV ONE; Celecoxib 200 MG Cap PO ONE; Dexamethasone 4 MG/ML SDV ONE; Gabapentin 300 MG Cap PO ONE; Glycopyrrolate 0.2 MG/ML 5 ML MDV ONE; Neostigmine Methylsulfate 1 MG/ML 5 ML Syringe ONE; Ondansetron 4 MG/2 ML SDV ONE; Propofol 200 MG/20 ML SDV ONE; Rocuronium 50 MG/5 ML Vial ONE; Succinylcholine 200 MG/10 ML MDV ONE; cefOXitin 2 GM Vial ONE
[2022-07-20] MEDS ORDERED: Dextrose 5%-Lactated Ringers 1,000 ML IV SCH (07:30)
[2022-07-20] MEDS ORDERED: Albuterol/Ipratropium 3.0-0.5 MG/3 ML Neb Soln NEB ONE (07:31)
[2022-07-20] MEDS ORDERED: Clindamycin Phosphate in D5W 900 MG in Premix Bag 1 BAG IV ONE ×4 (07:45)
[2022-07-20] MEDS ORDERED: Ketoconazole 2% Crm 30 GM Tube ONE (08:33)
[2022-07-20] MEDS ORDERED: NORMAL SALINE ONE (09:00)
[2022-07-20] MEDS ORDERED: Ketamine 14 MG in Sodium Chloride 0.9% 19.86 ML IV SCH (09:00)
[2022-07-20] MEDS ORDERED: FLUCONAZOLE ONE (09:00)
[2022-07-20] MEDS ORDERED: Ketamine 500 MG/5 ML MDV IV SCH (09:00)
[2022-07-20] MEDS ORDERED: Ropivacaine 40 ML, dexAMETHasone 8 MG, EPINEPHrine 0.4 MG, Sodium Chloride 0.9% 37.6 ML NERVRT SCH ×4 (09:00)
[2022-07-20] MEDS ORDERED: Linezolid 600 MG/300 ML Premix Bag IRR ONE (09:05)
[2022-07-20] MEDS ORDERED: Lactated Ringers 1,000 ML ONE (09:45)
[2022-07-20] MEDS ORDERED: Sugammadex Sodium 200 MG/2 ML VIAL ONE (10:07)
[2022-07-20] MEDS ORDERED: methylPREDNISolone Sodium Succinate 125 MG/2 ML SDV IVPUSH ONE (10:40)
[2022-07-20] MEDS: HYDROmorphone/Normal Saline 6 MG/30 ML PCA Vial IV PRN ×2 (11:39→16:37)
[2022-07-20] MEDS ORDERED: Pantoprazole 40 MG Vial IVPUSH SCH (12:00)
[2022-07-20] MEDS ORDERED: Labetalol 20 MG/4 ML Syringe IVPUSH PRN (12:00)
[2022-07-20] MEDS ORDERED: Ondansetron 4 MG/2 ML SDV IVPUSH PRN (12:00)
[2022-07-20] MEDS ORDERED: Metoclopramide 10 MG/2 ML SDV IVPUSH PRN (12:00)
[2022-07-20] MEDS ORDERED: Acetaminophen 500 MG Tab PO PRN (12:00)
[2022-07-20] MEDS ORDERED: Albuterol/Ipratropium 3.0-0.5 MG/3 ML Neb Soln INH PRN (12:00)
[2022-07-20] MEDS ORDERED: diphenhydrAMINE 50 MG/ML SDV IVPUSH PRN (12:00)
[2022-07-20] MEDS: Dextrose 5%-Lactated Ringers 1,000 ML IV SCH (13:07)
[2022-07-20] MEDS: Acetaminophen 500 MG Tab PO SCH ×2 (14:15→21:04)
[2022-07-20] MEDS: Gabapentin 300 MG Cap PO SCH ×2 (14:16→20:24)
[2022-07-20] MEDS: Albuterol/Ipratropium 3.0-0.5 MG/3 ML Neb Soln INH SCH ×2 (14:32→20:24)
[2022-07-20] MEDS ORDERED: Cyclobenzaprine 10 MG Tab PO PRN (15:21)
[2022-07-20] MEDS ORDERED: Methocarbamol 500 MG Tab PO PRN (15:23)
[2022-07-20] MEDS ORDERED: MVI, Adult with Vitamin K 10 ML, Thiamine 200 MG, Zinc/Copper/Manganese/Selenium 1 ML i... IV SCH ×4 (16:00)
[2022-07-20] MEDS: Clindamycin Phosphate in D5W 900 MG in Premix Bag 1 BAG IV SCH ×2 (16:24)
[2022-07-20] MEDS: Heparin Sodium 5,000 Units/ML Vial SUBCUT SCH (17:51)
[2022-07-20] MEDS: Venlafaxine 37.5 MG Cap.ER PO SCH (20:25)
[2022-07-20] MEDS: Formoterol/Mometasone 200-5 MCG 8.8 GM Inhaler IH SCH (20:25)
[2022-07-20] MEDS: Tamsulosin 0.4 MG Cap.ER PO SCH (20:26)
[2022-07-20] MEDS: Methocarbamol 500 MG Tab PO SCH (20:26)
[2022-07-20] MEDS: atorvaSTATin 10 MG Tab PO SCH (20:26)
[2022-07-20] MEDS: Naloxone 0.4 MG/ML SDV IV PRN ×2 (20:33→22:32)
[2022-07-20] MEDS ORDERED: HYDROmorphone/Normal Saline 6 MG/30 ML PCA Vial IV PRN ×2 (20:55)
[2022-07-21] MEDS: Clindamycin Phosphate in D5W 900 MG in Premix Bag 1 BAG IV SCH ×4 (00:24→07:41)
[2022-07-21] MEDS: Dextrose 5%-Lactated Ringers 1,000 ML IV SCH (00:25)
[2022-07-21] MEDS: Acetaminophen 500 MG Tab PO SCH ×3 (05:05→21:54)
[2022-07-21] MEDS: Heparin Sodium 5,000 Units/ML Vial SUBCUT SCH ×2 (06:22→17:25)
[2022-07-21] MEDS ORDERED: Ondansetron 4 MG Tab.DIS PO PRN (07:02)
[2022-07-21] MEDS: Albuterol/Ipratropium 3.0-0.5 MG/3 ML Neb Soln INH SCH ×4 (07:05→21:52)
[2022-07-21] MEDS: Formoterol/Mometasone 200-5 MCG 8.8 GM Inhaler IH SCH ×2 (07:05→21:52)
[2022-07-21] MEDS ORDERED: Dextrose 5%-Lactated Ringers 1,000 ML IV SCH (07:15)
[2022-07-21] MEDS: predniSONE 10 MG Tab PO SCH (07:41)
[2022-07-21] MEDS: Furosemide 40 MG Tab PO SCH (08:21)
[2022-07-21] MEDS: Celecoxib 200 MG Cap PO SCH ×2 (08:21→21:52)
[2022-07-21] MEDS: Aspirin 81 MG Tab.EC PO SCH (08:21)
[2022-07-21] MEDS: FLUoxetine 20 MG Cap PO SCH (08:21)
[2022-07-21] MEDS: Cetirizine 10 MG Tab PO SCH (08:21)
[2022-07-21] MEDS: Gabapentin 300 MG Cap PO SCH ×3 (08:21→21:52)
[2022-07-21] MEDS: traMADol 50 MG Tab PO PRN ×2 (10:14→21:51)
[2022-07-21] MEDS: Pantoprazole 40 MG Tab.CR PO SCH (11:52)
[2022-07-21] MEDS: hydrOXYzine HCL 100 MG/2 ML SDV IM PRN ×2 (14:49→20:00)
[2022-07-21] MEDS ORDERED: MVI, Adult with Vitamin K 10 ML, Thiamine 200 MG, Zinc/Copper/Manganese/Selenium 1 ML i... IV SCH ×4 (16:00)
[2022-07-21] MEDS: atorvaSTATin 10 MG Tab PO SCH (21:53)
[2022-07-21] MEDS: Venlafaxine 37.5 MG Cap.ER PO SCH (21:53)
[2022-07-21] MEDS: Tamsulosin 0.4 MG Cap.ER PO SCH (21:53)
[2022-07-21] MEDS: Methocarbamol 500 MG Tab PO SCH (21:54)
[2022-07-22] MEDS: traMADol 50 MG Tab PO PRN ×2 (03:33→11:31)
[2022-07-22] MEDS: Acetaminophen 500 MG Tab PO SCH ×3 (06:09→23:17)
[2022-07-22] MEDS: Heparin Sodium 5,000 Units/ML Vial SUBCUT SCH ×2 (06:09→17:44)
[2022-07-22] MEDS: hydrOXYzine HCL 100 MG/2 ML SDV IM PRN (06:18)
[2022-07-22] MEDS: Formoterol/Mometasone 200-5 MCG 8.8 GM Inhaler IH SCH ×2 (07:29→20:26)
[2022-07-22] MEDS: Albuterol/Ipratropium 3.0-0.5 MG/3 ML Neb Soln INH SCH ×4 (07:29→20:34)
[2022-07-22] MEDS: Pantoprazole 40 MG Tab.CR PO SCH (07:36)
[2022-07-22] MEDS: predniSONE 10 MG Tab PO SCH (07:37)
[2022-07-22] MEDS ORDERED: Cyanocobalamin (Vitamin B12) 1,000 MCG/ML SDV IM ONE (09:00)
[2022-07-22] MEDS: Docusate Sodium 100 MG Cap PO SCH ×2 (09:09→20:25)
[2022-07-22] MEDS: Aspirin 81 MG Tab.EC PO SCH (09:09)
[2022-07-22] MEDS: Mupirocin Oint 22 GM Tube TOP SCH (09:09)
[2022-07-22] MEDS: Celecoxib 200 MG Cap PO SCH ×2 (09:09→20:25)
[2022-07-22] MEDS: Gabapentin 300 MG Cap PO SCH ×3 (09:10→20:27)
[2022-07-22] MEDS: FLUoxetine 20 MG Cap PO SCH (09:10)
[2022-07-22] MEDS: Furosemide 40 MG Tab PO SCH (09:10)
[2022-07-22] MEDS: Cetirizine 10 MG Tab PO SCH (09:11)
[2022-07-22] MEDS: hydrOXYzine HCl 25 MG Tab PO PRN ×3 (12:59→23:20)
[2022-07-22] MEDS: Methocarbamol 500 MG Tab PO SCH (20:27)
[2022-07-22] MEDS: atorvaSTATin 10 MG Tab PO SCH (20:28)
[2022-07-22] MEDS: Venlafaxine 37.5 MG Cap.ER PO SCH (20:28)
[2022-07-22] MEDS: Tamsulosin 0.4 MG Cap.ER PO SCH (20:29)
[2022-07-23] MEDS: Acetaminophen 500 MG Tab PO SCH (06:11)
[2022-07-23] MEDS: Heparin Sodium 5,000 Units/ML Vial SUBCUT SCH (06:11)
[2022-07-23] MEDS: Albuterol/Ipratropium 3.0-0.5 MG/3 ML Neb Soln INH SCH (07:01)
[2022-07-23] MEDS: Formoterol/Mometasone 200-5 MCG 8.8 GM Inhaler IH SCH (07:01)
[2022-07-23 07:11] VITALS: BP 114/59; PULSE 76
[2022-07-23] MEDS: predniSONE 10 MG Tab PO SCH (07:13)
[2022-07-23] MEDS: Pantoprazole 40 MG Tab.CR PO SCH (07:13)
[2022-07-23] MEDS: hydrOXYzine HCl 25 MG Tab PO PRN (07:15)
[2022-07-23] MEDS: Furosemide 40 MG Tab PO SCH (08:57)
[2022-07-23] MEDS: Mupirocin Oint 22 GM Tube TOP SCH (08:57)
[2022-07-23] MEDS: Aspirin 81 MG Tab.EC PO SCH (08:57)
[2022-07-23] MEDS: Celecoxib 200 MG Cap PO SCH (08:57)
[2022-07-23] MEDS: Docusate Sodium 100 MG Cap PO SCH (08:57)
[2022-07-23] MEDS: Cetirizine 10 MG Tab PO SCH (08:58)
[2022-07-23] MEDS: FLUoxetine 20 MG Cap PO SCH (08:58)
[2022-07-23] MEDS: Gabapentin 300 MG Cap PO SCH (08:58)
== END 2022-07-23 09:25 | disposition home or self-care (01) | DRG 571 ==
LOC: JP.SDS 07:15 → JP.MS 10:58
PROVIDERS: ADMIT Surgery; ATTEND Surgery
PROC: 0JB80ZZ Excision of Abdomen Subcutaneous Tissue and Fascia, Open Approach (ICD-10-PCS; principal; 2022-07-20)
PROC: 0WQF0ZZ Repair Abdominal Wall, Open Approach (ICD-10-PCS; 2022-07-20)
DX: M79.3 Panniculitis, unspecified (principal); K42.0 Umbilical hernia with obstruction, without gangrene; G35 Multiple sclerosis; G89.29 Other chronic pain; F32.5 Major depressive disorder, single episode, in full remission; K21.9 Gastro-esophageal reflux disease without esophagitis; E78.5 Hyperlipidemia, unspecified
CPT/HCPCS: 88302; 94640; A9270-GY; C9113; J0171; J0330; J0694; J1100; J1170; J1450; J1644; J2020; J2310; J2405; J2704; J2710; J2765; J2795; J2930; J3410; J3411; J3420; J3490; J7120; J7121; J7512; J7620; Q0162

== ENCOUNTER 2022-07-24 16:06 | Emergency (ER) | payer MEDICARE ==
[2022-07-24 16:31] VITALS: BP 131/76; PULSE 82
[2022-07-24] MEDS ORDERED: fentaNYL 100 MCG/2 ML SDV IM ONE (16:46)
== END 2022-07-24 20:28 | disposition home or self-care (01) ==
LOC: JP.ED 16:06
DX: M54.50 Low back pain, unspecified (principal); S32.030S Wedge compression fracture of third lumbar vertebra, sequela; E78.00 Pure hypercholesterolemia, unspecified; E66.9 Obesity, unspecified; Z68.30 Body mass index [BMI] 30.0-30.9, adult; Z88.1 Allergy status to other antibiotic agents; Z88.0 Allergy status to penicillin; Z88.5 Allergy status to narcotic agent; Z88.2 Allergy status to sulfonamides; Z79.899 Other long term (current) drug therapy; Z79.82 Long term (current) use of aspirin; Z90.49 Acquired absence of other specified parts of digestive tract; Z90.710 Acquired absence of both cervix and uterus; W18.39XA Other fall on same level, initial encounter
CPT/HCPCS: 72100; 72131; 76377; 81001; 87086; 96372; 99284; J3010

== ENCOUNTER 2022-07-25 10:47 | Observation (INO) | payer MEDICARE ==
[2022-07-25 12:15] LABS: ESTIMATED GFR 62 mL/min (>60)
[2022-07-25] MEDS ORDERED: Acetaminophen 325 MG Tab PO PRN (13:51)
[2022-07-25] MEDS ORDERED: Polyethylene Glycol 3350 Powder 17 GM Packet PO PRN (13:51)
[2022-07-25] MEDS ORDERED: Sodium Chloride 0.9% 10 ML Syringe FLUSH PRN (13:51)
[2022-07-25] MEDS ORDERED: Ondansetron 4 MG/2 ML SDV IV PRN (13:51)
[2022-07-25] MEDS ORDERED: Furosemide 40 MG Tab PO PRN (13:51)
[2022-07-25] MEDS ORDERED: Furosemide 40 MG/4 ML VIAL IVPUSH ONE (13:51)
[2022-07-25] MEDS ORDERED: Gabapentin 300 MG Cap PO PRN (13:51)
[2022-07-25] MEDS ORDERED: Albuterol 90 MCG/6.7 GM Inhaler INH PRN (13:51)
[2022-07-25] MEDS: Enoxaparin 40 MG/0.4 ML Syringe SUBCUT SCH (15:31)
[2022-07-25] MEDS: Diclofenac Sodium 75 MG Tab.EC PO SCH (16:48)
[2022-07-25] MEDS: Multivitamins with Iron/Calcium/Folic Acid/Minerals Tab PO SCH (20:04)
[2022-07-25] MEDS: traMADol 50 MG Tab PO PRN (20:04)
[2022-07-25] MEDS: atorvaSTATin 10 MG Tab PO SCH (20:04)
[2022-07-25] MEDS: Calcium Carbonate 500 MG Tab.Chew PO SCH (20:04)
[2022-07-25] MEDS: Melatonin 3 MG Tab PO SCH (20:04)
[2022-07-25] MEDS ORDERED: Non-Formulary Medication 1 Each (Melatonin [Melatonin] 5 MG Tablet) PO SCH (21:00)
[2022-07-25] MEDS ORDERED: atorvaSTATin 20 MG Tab PO SCH (21:00)
[2022-07-25] MEDS ORDERED: Non-Formulary Medication 1 Each (Simvastatin [Zocor] 20 MG Tablet) PO SCH (21:00)
[2022-07-25] MEDS ORDERED: MULTIVITAMINS THERAPEUTIC PO SCH (21:00)
[2022-07-25] MEDS: hydrOXYzine HCl 25 MG Tab PO PRN (22:32)
[2022-07-26] MEDS: hydrOXYzine HCl 25 MG Tab PO PRN (02:40)
[2022-07-26] MEDS: traMADol 50 MG Tab PO PRN (02:40)
[2022-07-26] MEDS ORDERED: ESOMEPRAZOLE MAGNESIUM 20 MG PO SCH (09:00)
[2022-07-26] MEDS: Tamsulosin 0.4 MG Cap.ER PO SCH (09:41)
[2022-07-26] MEDS: predniSONE 10 MG Tab PO SCH (09:41)
[2022-07-26] MEDS: Venlafaxine 37.5 MG Cap.ER PO SCH (09:41)
[2022-07-26] MEDS: Pantoprazole 40 MG Tab.CR PO SCH (09:41)
[2022-07-26] MEDS: Cetirizine 10 MG Tab PO SCH (09:41)
[2022-07-26] MEDS: FLUoxetine 20 MG Cap PO SCH (09:41)
[2022-07-26] MEDS: Multivitamins with Iron/Calcium/Folic Acid/Minerals Tab PO SCH ×2 (09:41→20:15)
[2022-07-26] MEDS: Enoxaparin 40 MG/0.4 ML Syringe SUBCUT SCH (09:42)
[2022-07-26] MEDS: Calcium Carbonate 500 MG Tab.Chew PO SCH ×2 (09:42→20:15)
[2022-07-26] MEDS: Aspirin 81 MG Tab.EC PO SCH (09:42)
[2022-07-26] MEDS: Diclofenac Sodium 75 MG Tab.EC PO SCH ×2 (09:42→17:21)
[2022-07-26] MEDS: atorvaSTATin 10 MG Tab PO SCH (20:15)
[2022-07-26] MEDS: Melatonin 3 MG Tab PO SCH (20:15)
[2022-07-27] MEDS: Pantoprazole 40 MG Tab.CR PO SCH (08:00)
[2022-07-27] MEDS: traMADol 50 MG Tab PO PRN (08:07)
[2022-07-27] MEDS: Cetirizine 10 MG Tab PO SCH (08:47)
[2022-07-27] MEDS: Tamsulosin 0.4 MG Cap.ER PO SCH (08:47)
[2022-07-27] MEDS: Calcium Carbonate 500 MG Tab.Chew PO SCH (08:47)
[2022-07-27] MEDS: FLUoxetine 20 MG Cap PO SCH (08:47)
[2022-07-27] MEDS: Venlafaxine 37.5 MG Cap.ER PO SCH (08:47)
[2022-07-27] MEDS: Multivitamins with Iron/Calcium/Folic Acid/Minerals Tab PO SCH (08:47)
[2022-07-27] MEDS: Aspirin 81 MG Tab.EC PO SCH (08:47)
[2022-07-27] MEDS: predniSONE 10 MG Tab PO SCH (08:47)
[2022-07-27] MEDS: Diclofenac Sodium 75 MG Tab.EC PO SCH (08:48)
[2022-07-27] MEDS: Enoxaparin 40 MG/0.4 ML Syringe SUBCUT SCH (08:48)
[2022-07-27 10:45] VITALS: PULSE 85
[2022-07-27 10:47] VITALS: BP 123/70
== END 2022-07-27 12:48 | disposition home health service (06) ==
LOC: JP.ED 10:47 → JP.ICU 12:14
PROVIDERS: ADMIT Hospitalist; ATTEND Internal Medicine
DX: R53.1 Weakness (principal); E78.00 Pure hypercholesterolemia, unspecified; K21.9 Gastro-esophageal reflux disease without esophagitis; N39.0 Urinary tract infection, site not specified; E66.9 Obesity, unspecified; F41.9 Anxiety disorder, unspecified; F32.A Depression, unspecified; D64.9 Anemia, unspecified; M54.50 Low back pain, unspecified; S32.030S Wedge compression fracture of third lumbar vertebra, sequela; Z68.33 Body mass index [BMI] 33.0-33.9, adult; Z87.19 Personal history of other diseases of the digestive system; Z79.82 Long term (current) use of aspirin; Z79.899 Other long term (current) drug therapy; Z88.1 Allergy status to other antibiotic agents; Z88.2 Allergy status to sulfonamides; Z88.8 Allergy status to other drugs, medicaments and biological substances; Z88.0 Allergy status to penicillin; Z88.5 Allergy status to narcotic agent; Z88.6 Allergy status to analgesic agent; Z90.49 Acquired absence of other specified parts of digestive tract; Z98.890 Other specified postprocedural states; Z20.822 Contact with and (suspected) exposure to COVID-19; W19.XXXA Unspecified fall, initial encounter
CPT/HCPCS: 36415; 80053; 83605; 85025; 96372; 96374; 97161; 99285; A9270; G0378; J1650; J1940; J7512; U0002

== ENCOUNTER 2022-09-12 12:58 | Emergency (ER) | payer MEDICARE ==
[2022-09-12 14:39] VITALS: BP 129/54
[2022-09-12] MEDS ORDERED: Ketorolac 30 MG/ML SDV IVPUSH ONE (15:08)
[2022-09-12] MEDS ORDERED: diphenhydrAMINE 50 MG/ML SDV IVPUSH ONE (15:09)
[2022-09-12] MEDS ORDERED: Sodium Chloride 0.9% 10 ML Syringe FLUSH PRN (15:09)
[2022-09-12] MEDS ORDERED: Sodium Chloride 0.9% 1,000 ML IV SCH (15:15)
[2022-09-12 16:37] VITALS: PULSE 60
== END 2022-09-12 16:57 | disposition home or self-care (01) ==
LOC: JP.ED 12:58
DX: G43.909 Migraine, unspecified, not intractable, without status migrainosus (principal); E78.00 Pure hypercholesterolemia, unspecified; E66.9 Obesity, unspecified; Z68.34 Body mass index [BMI] 34.0-34.9, adult; Z88.1 Allergy status to other antibiotic agents; Z88.5 Allergy status to narcotic agent; Z88.2 Allergy status to sulfonamides; Z88.0 Allergy status to penicillin; Z79.899 Other long term (current) drug therapy; Z79.82 Long term (current) use of aspirin; Z90.49 Acquired absence of other specified parts of digestive tract; Z90.710 Acquired absence of both cervix and uterus
CPT/HCPCS: 96361; 96374; 96375; 99283; J1200; J1790; J1885; J3490; J7030

== ENCOUNTER 2022-11-27 09:25 | Emergency (ER) | payer MEDICARE ==
[2022-11-27 10:29] LABS: ESTIMATED GFR 95 mL/min (>60)
[2022-11-27 12:17] VITALS: BP 133/77; PULSE 72
== END 2022-11-27 13:11 | disposition home or self-care (01) ==
LOC: JP.ED 09:25
DX: L03.115 Cellulitis of right lower limb (principal); E78.00 Pure hypercholesterolemia, unspecified; K21.9 Gastro-esophageal reflux disease without esophagitis; E66.9 Obesity, unspecified; Z68.32 Body mass index [BMI] 32.0-32.9, adult; Z88.1 Allergy status to other antibiotic agents; Z88.2 Allergy status to sulfonamides; Z88.0 Allergy status to penicillin; Z88.5 Allergy status to narcotic agent; Z79.82 Long term (current) use of aspirin; Z79.899 Other long term (current) drug therapy
CPT/HCPCS: 36415; 80053; 83605; 85025; 85379; 93971-RT; 99284

== ENCOUNTER 2023-01-24 08:03 | Emergency (ER) | payer MEDICARE ==
[2023-01-24 08:38] LABS: BASOPHILS ABSOLUTE AUTO 0.06 K/uL (0.00-0.10); EOSINOPHILS ABSOLUTE AUTO 0.24 K/uL (0.00-0.40); EOSINOPHILS PERCENT AUTO 4.1 % (0.0-5.4); HEMATOCRIT 36.1 % (34.3-46.0); HEMOGLOBIN 11.5 g/dL (11.2-15.5); IMMATURE GRAN PERCENT AUTO 0.3 % (0.0-0.7); LYMPHOCYTES ABSOLUTE AUTO 1.68 K/uL (0.8-3.3); LYMPHOCYTES PERCENT AUTO 28.6 % (11.4-47.7); MEAN CORPUSCULAR HEMOGLOBIN 28.3 pg (31.6-35.5); MEAN CORPUSCULAR HGB CONC 31.9 g/dL (31.6-35.5); MEAN CORPUSCULAR VOLUME 88.7 fL (81.4-99.0); MONOCYTES ABSOLUTE AUTO 0.51 K/uL (0.20-0.90); MONOCYTES PERCENT AUTO 8.7 % (3.3-12.6); NEUTROPHILS ABSOLUTE AUTO 3.36 K/uL (1.0-7.6); NEUTROPHILS PERCENT AUTO 57.3 % (40.0-78.1); PLATELET COUNT,PLT 223 K/uL (130-375); RED BLOOD CELL COUNT 4.07 M/uL (3.77-5.24); WHITE BLOOD CELL COUNT,WBC 5.9 K/uL (3.2-11.0)
[2023-01-24 08:39] LABS: IMMATURE GRAN ABSOLUTE AUTO 0.02 K/uL (0.00-0.23)
[2023-01-24 09:01] LABS: BLOOD UREA NITROGEN,BUN 15 mg/dL (7-18); CALCIUM 8.2 mg/dL (8.5-10.1); CARBON DIOXIDE,CO2 28 mmol/L (21-32); CHLORIDE,CL 108 mmol/L (100-108); CREATININE 0.8 mg/dL (0.6-1.0); ESTIMATED GFR 81 mL/min (>60); GLUCOSE RANDOM 93 mg/dL (74-106); POTASSIUM,K 3.5 mmol/L (3.6-5.2); SODIUM,NA 141 mmol/L (140-148); TROPONIN I HIGH SENSITIVITY 4.9 pg/mL (<=60.3)
[2023-01-24 09:04] LABS: ANION GAP 8.5 mmol/L (5.0-14.0)
[2023-01-24 10:43] VITALS: BP 110/56; PULSE 72
== END 2023-01-24 09:37 | disposition home or self-care (01) ==
LOC: JP.ED 08:03
DX: R09.1 Pleurisy (principal); R07.89 Other chest pain; E78.00 Pure hypercholesterolemia, unspecified; J45.909 Unspecified asthma, uncomplicated; M19.90 Unspecified osteoarthritis, unspecified site; E66.9 Obesity, unspecified; Z68.32 Body mass index [BMI] 32.0-32.9, adult; Z88.2 Allergy status to sulfonamides; Z88.1 Allergy status to other antibiotic agents; Z88.5 Allergy status to narcotic agent; Z88.0 Allergy status to penicillin; Z88.8 Allergy status to other drugs, medicaments and biological substances; Z79.82 Long term (current) use of aspirin; Z79.899 Other long term (current) drug therapy
CPT/HCPCS: 36415; 71046; 80048; 84484; 85025; 99285

== ENCOUNTER 2023-04-14 08:46 | Emergency (ER) | payer MEDICARE ==
[2023-04-14 09:02] VITALS: BP 96/40; PULSE 68
[2023-04-14] MEDS ORDERED: Acetaminophen 325 MG Tab PO ONE (10:41)
[2023-04-14 11:26] LABS: BASOPHILS ABSOLUTE AUTO 0.05 K/uL (0.00-0.10); BASOPHILS PERCENT AUTO 0.7 % (0.1-1.3); EOSINOPHILS ABSOLUTE AUTO 0.24 K/uL (0.00-0.40); EOSINOPHILS PERCENT AUTO 3.6 % (0.0-5.4); HEMATOCRIT 33.6 % (34.3-46.0); HEMOGLOBIN 10.9 g/dL (11.2-15.5); IMMATURE GRAN ABSOLUTE AUTO 0.03 K/uL (0.00-0.23); IMMATURE GRAN PERCENT AUTO 0.4 % (0.0-0.7); LYMPHOCYTES ABSOLUTE AUTO 1.59 K/uL (0.8-3.3); LYMPHOCYTES PERCENT AUTO 23.7 % (11.4-47.7); MEAN CORPUSCULAR HEMOGLOBIN 28.2 pg (31.6-35.5); MEAN CORPUSCULAR HGB CONC 32.4 g/dL (31.6-35.5); MEAN CORPUSCULAR VOLUME 86.8 fL (81.4-99.0); MONOCYTES PERCENT AUTO 8.9 % (3.3-12.6); NEUTROPHILS ABSOLUTE AUTO 4.21 K/uL (1.0-7.6); NEUTROPHILS PERCENT AUTO 62.7 % (40.0-78.1); PLATELET COUNT,PLT 193 K/uL (130-375); RED BLOOD CELL COUNT 3.87 M/uL (3.77-5.24); WHITE BLOOD CELL COUNT,WBC 6.7 K/uL (3.2-11.0)
[2023-04-14 11:46] LABS: A/G RATIO 1.2 (1.2-2.2); ALANINE AMINOTRANSFERASE,ALT 30 U/L (12-78); ALBUMIN 3.2 g/dL (3.4-5.0); ALKALINE PHOSPHATASE 84 U/L (46-116); ANION GAP 5.7 mmol/L (5.0-14.0); ASPARTATE AMNIOTRANSFERASE,AST 29 U/L (15-37); BILIRUBIN TOTAL 0.3 mg/dL (0.2-1.0); BLOOD UREA NITROGEN,BUN 21 mg/dL (7-18); CALCIUM 8.4 mg/dL (8.5-10.1); CARBON DIOXIDE,CO2 28 mmol/L (21-32); CHLORIDE,CL 106 mmol/L (100-108); EST CRCL DRUG DOSING (CG) 40.63 mL/min; ESTIMATED GFR 61 mL/min (>60); GLUCOSE RANDOM 92 mg/dL (74-106); POTASSIUM,K 4.2 mmol/L (3.6-5.2); PROTEIN TOTAL,TP 5.9 g/dL (6.4-8.2); SODIUM,NA 140 mmol/L (140-148)
== END 2023-04-14 13:15 | disposition home or self-care (01) ==
LOC: JP.ED 08:46
DX: S70.01XA Contusion of right hip, initial encounter (principal); S00.83XA Contusion of other part of head, initial encounter; E78.00 Pure hypercholesterolemia, unspecified; E66.9 Obesity, unspecified; Z68.34 Body mass index [BMI] 34.0-34.9, adult; Z88.1 Allergy status to other antibiotic agents; Z88.5 Allergy status to narcotic agent; Z88.2 Allergy status to sulfonamides; Z88.0 Allergy status to penicillin; Z88.8 Allergy status to other drugs, medicaments and biological substances; Z79.899 Other long term (current) drug therapy; Z79.82 Long term (current) use of aspirin; Z90.49 Acquired absence of other specified parts of digestive tract; W19.XXXA Unspecified fall, initial encounter
CPT/HCPCS: 36415; 73502-26-RT; 73502-RT; 80053; 85025; 99282; 99284; A9270-GY

== ENCOUNTER 2023-04-25 05:59 | Day surgery (SDC) | payer MEDICARE ==
[2023-04-25] MEDS ORDERED: Bupivacaine 0.5% 30 ML SDV ONE ×2 (06:40→07:27)
[2023-04-25] MEDS ORDERED: Nozin Nasal Sanitizer NASBOTH ONE (07:00)
[2023-04-25] MEDS ORDERED: Lactated Ringers 1,000 ML IV SCH (07:00)
[2023-04-25] MEDS ORDERED: Midazolam 1 MG/ML 2 ML SDV ONE ×2 (07:25→08:40)
[2023-04-25] MEDS ORDERED: Propofol 200 MG/20 ML SDV ONE ×3 (07:25→09:26)
[2023-04-25] MEDS ORDERED: fentaNYL 100 MCG/2 ML SDV ONE (07:25)
[2023-04-25] MEDS ORDERED: Clindamycin in 0.9 % Sod Chlor 300 MG in Premix Bag 1 BAG IV ONE ×2 (07:30)
[2023-04-25] MEDS ORDERED: methylPREDNISolone Sodium Succinate 125 MG/2 ML SDV IVPUSH ONE (07:30)
[2023-04-25] MEDS ORDERED: Clindamycin Phosphate in D5W 900 MG in Premix Bag 1 BAG IV ONE ×2 (08:00)
[2023-04-25] MEDS ORDERED: Clindamycin in 0.9 % Sod Chlor 600 MG in Premix Bag 1 BAG IV ONE ×2 (08:00)
[2023-04-25] MEDS ORDERED: Lactated Ringers 1,000 ML ONE (09:33)
[2023-04-25] MEDS ORDERED: Acetaminophen/Codeine 300-30 MG Tab PO ONE (12:00)
[2023-04-25 13:22] VITALS: BP 142/66; PULSE 73
== END 2023-04-25 13:15 | disposition home or self-care (01) ==
LOC: JP.SDS 05:59
PROVIDERS: ATTEND Specialist
DX: M75.121 Complete rotator cuff tear or rupture of right shoulder, not specified as traumatic (principal); S46.111A Strain of muscle, fascia and tendon of long head of biceps, right arm, initial encounter; M94.211 Chondromalacia, right shoulder; M75.41 Impingement syndrome of right shoulder; G35 Multiple sclerosis; F32.9 Major depressive disorder, single episode, unspecified; E66.9 Obesity, unspecified; Z79.82 Long term (current) use of aspirin; Z79.899 Other long term (current) drug therapy; Z88.1 Allergy status to other antibiotic agents; Z88.5 Allergy status to narcotic agent; Z88.0 Allergy status to penicillin; Z88.2 Allergy status to sulfonamides; Z88.8 Allergy status to other drugs, medicaments and biological substances; Z68.32 Body mass index [BMI] 32.0-32.9, adult
CPT/HCPCS: 29826; 29827; A9270; C1713; J2250; J2704; J2930; J3010; J3490; J7120

== ENCOUNTER 2023-07-04 05:03 | Emergency (ER) | payer MEDICARE ==
[2023-07-04 05:13] VITALS: BP 100/47; PULSE 97
== END 2023-07-04 08:15 | disposition home or self-care (01) ==
LOC: JP.ED 05:03
DX: S89.92XA Unspecified injury of left lower leg, initial encounter (principal); E78.00 Pure hypercholesterolemia, unspecified; E66.9 Obesity, unspecified; Z68.33 Body mass index [BMI] 33.0-33.9, adult; Z88.1 Allergy status to other antibiotic agents; Z88.8 Allergy status to other drugs, medicaments and biological substances; Z88.2 Allergy status to sulfonamides; Z88.5 Allergy status to narcotic agent; Z88.0 Allergy status to penicillin; Z79.899 Other long term (current) drug therapy; Z79.82 Long term (current) use of aspirin; Z90.49 Acquired absence of other specified parts of digestive tract; Z90.710 Acquired absence of both cervix and uterus; W01.0XXA Fall on same level from slipping, tripping and stumbling without subsequent striking against object, initial encounter
CPT/HCPCS: 73562-26-LT; 73562-LT; 99283

== ENCOUNTER 2023-09-07 08:47 | Day surgery (SDC) | payer MEDICARE ==
[2023-09-07] MEDS: Bupivacaine 0.5% 50 ML MDV ONE ×3 (08:58→12:45)
[2023-09-07] MEDS ORDERED: Propofol 200 MG/20 ML SDV ONE ×3 (09:01→12:16)
[2023-09-07] MEDS ORDERED: fentaNYL 100 MCG/2 ML SDV ONE ×2 (09:01→12:36)
[2023-09-07] MEDS ORDERED: Midazolam 1 MG/ML 2 ML SDV ONE ×3 (09:01→12:11)
[2023-09-07] MEDS ORDERED: Bupivacaine 0.5% 30 ML SDV ONE (09:03)
[2023-09-07] MEDS ORDERED: Nozin Nasal Sanitizer NASBOTH ONE (09:27)
[2023-09-07] MEDS ORDERED: Lactated Ringers 1,000 ML IV SCH (09:30)
[2023-09-07 09:39] LABS: HEMATOCRIT 39.6 % (34.3-46.0); HEMOGLOBIN 12.8 g/dL (11.2-15.5); MEAN CORPUSCULAR HEMOGLOBIN 27.8 pg (31.6-35.5); MEAN CORPUSCULAR HGB CONC 32.3 g/dL (31.6-35.5); MEAN CORPUSCULAR VOLUME 86.1 fL (81.4-99.0); RED BLOOD CELL COUNT 4.6 M/uL (3.77-5.24); WHITE BLOOD CELL COUNT,WBC 10.8 K/uL (3.2-11.0)
[2023-09-07 10:00] LABS: ALANINE AMINOTRANSFERASE,ALT 18 U/L (12-78); ALBUMIN 3.4 g/dL (3.4-5.0); ALKALINE PHOSPHATASE 107 U/L (46-116); ANION GAP 9.7 mmol/L (5.0-14.0); ASPARTATE AMNIOTRANSFERASE,AST 10 U/L (15-37); BILIRUBIN TOTAL 0.4 mg/dL (0.2-1.0); BLOOD UREA NITROGEN,BUN 22 mg/dL (7-18); CALCIUM 8.4 mg/dL (8.5-10.1); CARBON DIOXIDE,CO2 29 mmol/L (21-32); CHLORIDE,CL 105 mmol/L (100-108); CREATININE 0.7 mg/dL (0.6-1.0); EST CRCL DRUG DOSING (CG) 58.04 mL/min; ESTIMATED GFR 94 mL/min (>60); GLUCOSE RANDOM 82 mg/dL (74-106); POTASSIUM,K 4.1 mmol/L (3.6-5.2); PROTEIN TOTAL,TP 6.8 g/dL (6.4-8.2); SODIUM,NA 144 mmol/L (140-148)
[2023-09-07] MEDS ORDERED: Clindamycin in 0.9 % Sod Chlor 900 MG in Premix Bag 1 BAG IV ONE ×2 (10:00)
[2023-09-07] MEDS ORDERED: Ondansetron 4 MG/2 ML SDV ONE (10:52)
[2023-09-07] MEDS ORDERED: Lactated Ringers 1,000 ML ONE (12:41)
[2023-09-07] MEDS ORDERED: Ondansetron 4 MG/2 ML SDV IVPUSH ONE (13:07)
[2023-09-07 14:32] VITALS: PULSE 83
[2023-09-07 14:47] VITALS: BP 160/71
== END 2023-09-07 15:15 | disposition home or self-care (01) ==
LOC: JP.SDS 08:47
PROVIDERS: ATTEND Specialist
DX: M75.101 Unspecified rotator cuff tear or rupture of right shoulder, not specified as traumatic (principal); I10 Essential (primary) hypertension; F41.9 Anxiety disorder, unspecified; K21.9 Gastro-esophageal reflux disease without esophagitis; F32.A Depression, unspecified
CPT/HCPCS: 29827; 36415; 80053; 85027; A9270; C1713; J0665; J2250; J2405; J2704; J3010; J3490; J7120; J0736

== ENCOUNTER 2023-09-12 17:12 | Emergency (ER) | payer MEDICARE ==
[2023-09-12 18:54] LABS: BASOPHILS ABSOLUTE AUTO 0.11 K/uL (0.00-0.10); BASOPHILS PERCENT AUTO 0.9 % (0.1-1.3); EOSINOPHILS PERCENT AUTO 5.2 % (0.0-5.4); HEMATOCRIT 36.7 % (34.3-46.0); HEMOGLOBIN 11.7 g/dL (11.2-15.5); IMMATURE GRAN ABSOLUTE AUTO 0.07 K/uL (0.00-0.23); IMMATURE GRAN PERCENT AUTO 0.6 % (0.0-0.7); LYMPHOCYTES ABSOLUTE AUTO 2.11 K/uL (0.8-3.3); LYMPHOCYTES PERCENT AUTO 18.2 % (11.4-47.7); MEAN CORPUSCULAR HEMOGLOBIN 27.4 pg (31.6-35.5); MEAN CORPUSCULAR HGB CONC 31.9 g/dL (31.6-35.5); MEAN CORPUSCULAR VOLUME 85.9 fL (81.4-99.0); MONOCYTES ABSOLUTE AUTO 0.89 K/uL (0.20-0.90); MONOCYTES PERCENT AUTO 7.7 % (3.3-12.6); NEUTROPHILS ABSOLUTE AUTO 7.84 K/uL (1.0-7.6); NEUTROPHILS PERCENT AUTO 67.4 % (40.0-78.1); PLATELET COUNT,PLT 286 K/uL (130-375); RED BLOOD CELL COUNT 4.27 M/uL (3.77-5.24); WHITE BLOOD CELL COUNT,WBC 11.6 K/uL (3.2-11.0)
[2023-09-12 19:10] LABS: ANION GAP 8.5 mmol/L (5.0-14.0); C-REACTIVE PROTEIN 3.42 mg/dL (<0.50); CALCIUM 9.2 mg/dL (8.5-10.1); EST CRCL DRUG DOSING (CG) 40.63 mL/min; POTASSIUM,K 3.6 mmol/L (3.6-5.2)
[2023-09-12] MEDS ORDERED: Furosemide 40 MG/4 ML VIAL IVPUSH SCH (20:00)
[2023-09-12 21:09] VITALS: BP 148/62; PULSE 73
== END 2023-09-12 21:30 | disposition home or self-care (01) ==
LOC: JP.ED 17:12
DX: R60.0 Localized edema (principal); I87.2 Venous insufficiency (chronic) (peripheral); E66.9 Obesity, unspecified; K21.9 Gastro-esophageal reflux disease without esophagitis; E78.00 Pure hypercholesterolemia, unspecified; M19.90 Unspecified osteoarthritis, unspecified site; Z79.82 Long term (current) use of aspirin; Z79.899 Other long term (current) drug therapy; Z88.1 Allergy status to other antibiotic agents; Z88.5 Allergy status to narcotic agent; Z88.0 Allergy status to penicillin; Z88.2 Allergy status to sulfonamides; Z88.8 Allergy status to other drugs, medicaments and biological substances
CPT/HCPCS: 36415; 80048; 85025; 86140; 96374; 99284; J1940; 99283

== ENCOUNTER 2023-11-23 15:19 | Emergency (ER) | payer MEDICARE ==
[2023-11-23 15:42] LABS: BASOPHILS ABSOLUTE AUTO 0.06 K/uL (0.00-0.10); EOSINOPHILS ABSOLUTE AUTO 0.35 K/uL (0.00-0.40); EOSINOPHILS PERCENT AUTO 5.5 % (0.0-5.4); HEMATOCRIT 37.5 % (34.3-46.0); IMMATURE GRAN ABSOLUTE AUTO 0.05 K/uL (0.00-0.23); IMMATURE GRAN PERCENT AUTO 0.8 % (0.0-0.7); LYMPHOCYTES ABSOLUTE AUTO 1.97 K/uL (0.8-3.3); LYMPHOCYTES PERCENT AUTO 31.2 % (11.4-47.7); MEAN CORPUSCULAR HEMOGLOBIN 27.2 pg (31.6-35.5); MONOCYTES ABSOLUTE AUTO 0.69 K/uL (0.20-0.90); MONOCYTES PERCENT AUTO 10.9 % (3.3-12.6); NEUTROPHILS ABSOLUTE AUTO 3.19 K/uL (1.0-7.6); NEUTROPHILS PERCENT AUTO 50.6 % (40.0-78.1); PLATELET COUNT,PLT 213 K/uL (130-375); RED BLOOD CELL COUNT 4.41 M/uL (3.77-5.24); WHITE BLOOD CELL COUNT,WBC 6.3 K/uL (3.2-11.0)
[2023-11-23] MEDS: Sodium Chloride 0.9% 10 ML Syringe FLUSH PRN (15:55)
[2023-11-23 16:02] LABS: INR 0.9; PROTHROMBIN TIME 9.6 sec (9.2-10.6); PTT,PARTIAL THROMBOPLSTIN TIME 24.1 sec (21.8-27.3)
[2023-11-23 16:07] LABS: A/G RATIO 0.9 (1.2-2.2); ALANINE AMINOTRANSFERASE,ALT 27 U/L (12-78); ALKALINE PHOSPHATASE 99 U/L (46-116); ANION GAP 13.2 mmol/L (5.0-14.0); ASPARTATE AMNIOTRANSFERASE,AST 19 U/L (15-37); BILIRUBIN TOTAL 0.2 mg/dL (0.2-1.0); BLOOD UREA NITROGEN,BUN 20 mg/dL (7-18); CALCIUM 8.6 mg/dL (8.5-10.1); CARBON DIOXIDE,CO2 28 mmol/L (21-32); CHLORIDE,CL 110 mmol/L (100-108); CREATININE 0.8 mg/dL (0.6-1.0); ESTIMATED GFR 80 mL/min (>60); GLUCOSE RANDOM 97 mg/dL (74-106); POTASSIUM,K 4.2 mmol/L (3.6-5.2); PROTEIN TOTAL,TP 6.2 g/dL (6.4-8.2); SODIUM,NA 147 mmol/L (140-148); TROPONIN I HIGH SENSITIVITY < 4.0 pg/mL (<=60.3)
[2023-11-23] MEDS: Sodium Chloride 0.9% 10 ML Syringe FLUSH ONE (16:36)
[2023-11-23] MEDS: Sodium Chloride 0.9% 100 ML IV ONE (16:36)
[2023-11-23] MEDS: Iopamidol 755 Mg/ML 100 ML Bottle IV ONE (16:36)
[2023-11-23] MEDS: Aspirin 81 MG Tab.Chew PO ONE (17:54)
[2023-11-23 18:43] VITALS: PULSE 71
[2023-11-23 20:33] VITALS: BP 130/63
== END 2023-11-23 20:31 ==
LOC: JP.ED 15:19
DX: R29.818 Other symptoms and signs involving the nervous system (principal); E78.00 Pure hypercholesterolemia, unspecified; K21.9 Gastro-esophageal reflux disease without esophagitis; E66.9 Obesity, unspecified; Z88.0 Allergy status to penicillin; Z88.8 Allergy status to other drugs, medicaments and biological substances; Z88.5 Allergy status to narcotic agent; Z88.2 Allergy status to sulfonamides; Z86.19 Personal history of other infectious and parasitic diseases; Z79.82 Long term (current) use of aspirin; Z79.899 Other long term (current) drug therapy; Z68.36 Body mass index [BMI] 36.0-36.9, adult
CPT/HCPCS: 36415; 70450; 70496; 70498; 80053; 84484; 85025; 85610; 85730; 93005; 93010; 99285; A9270; J3490; Q9967

== ENCOUNTER 2024-01-05 09:19 | Emergency (ER) | payer MEDICARE ==
[2024-01-05 10:50] VITALS: BP 99/55; PULSE 75
[2024-01-05 10:54] LABS: BASOPHILS ABSOLUTE AUTO 0.06 K/uL (0.00-0.10); BASOPHILS PERCENT AUTO 0.7 % (0.1-1.3); EOSINOPHILS PERCENT AUTO 2.2 % (0.0-5.4); HEMATOCRIT 35.4 % (34.3-46.0); HEMOGLOBIN 11.3 g/dL (11.2-15.5); IMMATURE GRAN ABSOLUTE AUTO 0.05 K/uL (0.00-0.23); IMMATURE GRAN PERCENT AUTO 0.6 % (0.0-0.7); LYMPHOCYTES ABSOLUTE AUTO 2.13 K/uL (0.8-3.3); LYMPHOCYTES PERCENT AUTO 23.8 % (11.4-47.7); MEAN CORPUSCULAR HEMOGLOBIN 27.5 pg (31.6-35.5); MEAN CORPUSCULAR HGB CONC 31.9 g/dL (31.6-35.5); MEAN CORPUSCULAR VOLUME 86.1 fL (81.4-99.0); MONOCYTES ABSOLUTE AUTO 0.74 K/uL (0.20-0.90); MONOCYTES PERCENT AUTO 8.3 % (3.3-12.6); NEUTROPHILS ABSOLUTE AUTO 5.78 K/uL (1.0-7.6); NEUTROPHILS PERCENT AUTO 64.4 % (40.0-78.1); PLATELET COUNT,PLT 236 K/uL (130-375); RED BLOOD CELL COUNT 4.11 M/uL (3.77-5.24)
[2024-01-05 10:56] LABS: APPEARANCE,URINE SLIGHTLY CLOUDY (CLEAR); BILIRUBIN,URINE NEGATIVE (NEGATIVE); COLOR,URINE YELLOW (YELLOW); GLUCOSE,URINE NEGATIVE (NEGATIVE); KETONES,URINE NEGATIVE (NEGATIVE); LEUKOCYTE ESTERASE,URINE TRACE (NEGATIVE); NITRITE,URINE NEGATIVE (NEGATIVE); OCCULT BLOOD,URINE NEGATIVE (NEGATIVE); PROTEIN,URINE NEGATIVE (NEGATIVE); UROBILINOGEN,URINE 0.2 EU/dL (0.2-1.0)
[2024-01-05 11:16] LABS: CORONAVIRUS COVID-19 NAA NEGATIVE (NEGATIVE); INFLUENZA A NAA NEGATIVE (NEGATIVE); INFLUENZA B NAA NEGATIVE (NEGATIVE); RESPIRATORY SYNCYTIAL VIR NAA NEGATIVE (NEGATIVE)
[2024-01-05 11:21] LABS: A/G RATIO 0.8 (1.2-2.2); ALANINE AMINOTRANSFERASE,ALT 17 U/L (12-78); ALBUMIN 2.8 g/dL (3.4-5.0); ALKALINE PHOSPHATASE 97 U/L (46-116); ANION GAP 5.1 mmol/L (5.0-14.0); ASPARTATE AMNIOTRANSFERASE,AST 10 U/L (15-37); BILIRUBIN TOTAL 0.4 mg/dL (0.2-1.0); BLOOD UREA NITROGEN,BUN 25 mg/dL (7-18); CALCIUM 8.4 mg/dL (8.5-10.1); CARBON DIOXIDE,CO2 29 mmol/L (21-32); CHLORIDE,CL 107 mmol/L (100-108); CREATININE 0.9 mg/dL (0.6-1.0); EST CRCL DRUG DOSING (CG) 45.14 mL/min; ESTIMATED GFR 70 mL/min (>60); GLUCOSE RANDOM 98 mg/dL (74-106); POTASSIUM,K 3.9 mmol/L (3.6-5.2); PROTEIN TOTAL,TP 6.2 g/dL (6.4-8.2); SODIUM,NA 141 mmol/L (140-148)
[2024-01-05 11:42] LABS: BACTERIA,URINE RARE; EPITHELIAL CELLS,URINE MODERATE; MUCUS,URINE FEW; RBC,URINE NOT SEEN (0-5); WBC,URINE 0-5 (0-5)
[2024-01-05 11:43] LABS: AMORPHOUS SEDIMENT,URINE MODERATE
== END 2024-01-05 12:31 | disposition home or self-care (01) ==
LOC: JP.ED 09:19
DX: M51.36 Other intervertebral disc degeneration, lumbar region (principal); S32.030S Wedge compression fracture of third lumbar vertebra, sequela; J45.909 Unspecified asthma, uncomplicated; K21.9 Gastro-esophageal reflux disease without esophagitis; E66.9 Obesity, unspecified; E78.00 Pure hypercholesterolemia, unspecified; Z88.1 Allergy status to other antibiotic agents; Z88.8 Allergy status to other drugs, medicaments and biological substances; Z88.5 Allergy status to narcotic agent; Z88.0 Allergy status to penicillin; Z88.2 Allergy status to sulfonamides; Z79.82 Long term (current) use of aspirin; Z79.899 Other long term (current) drug therapy; Z79.51 Long term (current) use of inhaled steroids; Z86.19 Personal history of other infectious and parasitic diseases; Z68.35 Body mass index [BMI] 35.0-35.9, adult; X58.XXXS Exposure to other specified factors, sequela
CPT/HCPCS: 0241U; 36415; 80053; 81001; 85025; 99283; 99284

== ENCOUNTER 2024-04-20 05:40 | Emergency (ER) | payer MEDICARE ==
[2024-04-20 05:46] VITALS: BP 148/84; PULSE 80
== END 2024-04-20 08:33 | disposition home or self-care (01) ==
LOC: JP.ED 05:40
DX: S70.02XA Contusion of left hip, initial encounter (principal); S40.012A Contusion of left shoulder, initial encounter; E78.00 Pure hypercholesterolemia, unspecified; J45.909 Unspecified asthma, uncomplicated; K21.9 Gastro-esophageal reflux disease without esophagitis; M19.90 Unspecified osteoarthritis, unspecified site; E66.9 Obesity, unspecified; Z90.49 Acquired absence of other specified parts of digestive tract; Z90.710 Acquired absence of both cervix and uterus; Z79.899 Other long term (current) drug therapy; Z79.82 Long term (current) use of aspirin; Z88.2 Allergy status to sulfonamides; Z88.0 Allergy status to penicillin; Z88.5 Allergy status to narcotic agent; Z88.8 Allergy status to other drugs, medicaments and biological substances; Z88.1 Allergy status to other antibiotic agents
CPT/HCPCS: 73030-26-LT; 73030-LT; 73502-26-LT; 73502-LT; 99284

== ENCOUNTER 2024-05-14 12:01 | Inpatient (IN) | payer MEDICARE ==
[~2024-05-14 12:01] MED LIST changes: +Bupivacaine 0.5% 30 ML SDV ONE; +Bupivacaine 0.5% 50 ML MDV ONE; -Bupivacaine 0.5%/EPINEPHrine 1:200,000 50 ML MDV ONE; -Celecoxib 200 MG Cap PO ONE; -Gabapentin 300 MG Cap PO ONE; -Neostigmine Methylsulfate 1 MG/ML 5 ML Syringe ONE; +Neostigmine Methylsulfate 10 MG/10 ML MDV ONE; -Succinylcholine 200 MG/10 ML MDV ONE; -cefOXitin 2 GM Vial ONE; +fentaNYL 100 MCG/2 ML SDV ONE
[2024-05-14 12:47] LABS: HEMATOCRIT 34.3 % (34.3-46.0); HEMOGLOBIN 11.2 g/dL (11.2-15.5); MEAN CORPUSCULAR HEMOGLOBIN 27.2 pg (31.6-35.5); MEAN CORPUSCULAR HGB CONC 32.7 g/dL (31.6-35.5); MEAN CORPUSCULAR VOLUME 83.3 fL (81.4-99.0); RED BLOOD CELL COUNT 4.12 M/uL (3.77-5.24); WHITE BLOOD CELL COUNT,WBC 9.4 K/uL (3.2-11.0)
[2024-05-14] MEDS: Nozin Nasal Sanitizer NASBOTH SCH ×2 (13:03→21:13)
[2024-05-14 13:08] LABS: ALANINE AMINOTRANSFERASE,ALT 13 U/L (12-78); ALBUMIN 3.5 g/dL (3.4-5.0); ALKALINE PHOSPHATASE 108 U/L (46-116); ANION GAP 10.5 mmol/L (5.0-14.0); ASPARTATE AMNIOTRANSFERASE,AST 17 U/L (15-37); BILIRUBIN TOTAL 0.5 mg/dL (0.2-1.0); BLOOD UREA NITROGEN,BUN 20 mg/dL (7-18); CALCIUM 9.3 mg/dL (8.5-10.1); CARBON DIOXIDE,CO2 29 mmol/L (21-32); CHLORIDE,CL 103 mmol/L (100-108); CREATININE 1.2 mg/dL (0.6-1.0); EST CRCL DRUG DOSING (CG) 33.39 mL/min; ESTIMATED GFR 49 mL/min (>60); GLUCOSE RANDOM 106 mg/dL (74-106); POTASSIUM,K 3.7 mmol/L (3.6-5.2); PROTEIN TOTAL,TP 6.9 g/dL (6.4-8.2); SODIUM,NA 142 mmol/L (140-148)
[2024-05-14] MEDS ORDERED: Lactated Ringers 1,000 ML IV SCH (13:15)
[2024-05-14] MEDS ORDERED: Magnesium Hydroxide 400 MG/5 ML Susp 30 ML Cup PO PRN (13:37)
[2024-05-14] MEDS ORDERED: Docusate Sodium 100 MG Cap PO PRN (13:37)
[2024-05-14] MEDS ORDERED: Albuterol 6.7 GM Inhaler INH PRN (13:42)
[2024-05-14] MEDS ORDERED: Furosemide 40 MG Tab PO PRN (13:43)
[2024-05-14] MEDS ORDERED: hydrOXYzine HCl 25 MG Tab PO PRN (13:43)
[2024-05-14] MEDS ORDERED: Sennosides 8.6 MG Tab PO PRN (13:43)
[2024-05-14] MEDS ORDERED: Gabapentin 300 MG Cap PO PRN (13:43)
[2024-05-14] MEDS ORDERED: SUMAtriptan 50 MG Tab PO PRN (13:43)
[2024-05-14] MEDS ORDERED: Calcium Carbonate 500 MG Tab.Chew PO PRN (13:43)
[2024-05-14] MEDS ORDERED: Succinylcholine 200 MG/10 ML MDV ONE (14:08)
[2024-05-14] MEDS ORDERED: Bupivacaine 0.5% 50 ML MDV ONE (14:36)
[2024-05-14] MEDS: Clindamycin in 0.9 % Sod Chlor 900 MG in Premix Bag 1 BAG IV ONE (16:35)
[2024-05-14] MEDS ORDERED: Midazolam 1 MG/ML 2 ML SDV ONE (16:38)
[2024-05-14] MEDS ORDERED: Phenylephrine 1% 10 MG/ML SDV ONE (17:21)
[2024-05-14] MEDS ORDERED: Sodium Chloride 0.9% 10 ML ONE (17:21)
[2024-05-14] MEDS ORDERED: Lactated Ringers 1,000 ML ONE (18:42)
[2024-05-14] MEDS ORDERED: fentaNYL 100 MCG/2 ML SDV ONE (18:50)
[2024-05-14] MEDS ORDERED: droPERidol 5 MG/2 ML SDV ONE (18:56)
[2024-05-14] MEDS ORDERED: NITROFURANTOIN MACROCRYSTAL 100 MG PO SCH (21:00)
[2024-05-14] MEDS: Sodium Chloride 0.9% 1,000 ML IV SCH (21:11)
[2024-05-14] MEDS: Acetaminophen 325 MG Tab PO SCH (21:12)
[2024-05-14] MEDS: atorvaSTATin 10 MG Tab PO SCH (21:26)
[2024-05-14] MEDS: Calcium Carbonate/Vitamin D3 1500 MG-400 Units Tab PO SCH (21:26)
[2024-05-14] MEDS: Triamcinolone Acetonide 0.1% Crm 15 GM Tube TOP SCH (21:26)
[2024-05-14] MEDS: Melatonin 3 MG Tab PO SCH (21:26)
[2024-05-14] MEDS: traMADol 50 MG Tab PO PRN (21:30)
[2024-05-14] MEDS: Clindamycin in 0.9 % Sod Chlor 900 MG in Premix Bag 1 BAG IV SCH (22:33)
[2024-05-15] MEDS: Pantoprazole 40 MG Tab.CR PO SCH (07:35)
[2024-05-15] MEDS: Ondansetron 4 MG/2 ML SDV IVPUSH PRN (07:39)
[2024-05-15] MEDS: Ketorolac 15 MG/ML SDV IVPUSH PRN (07:40)
[2024-05-15] MEDS ORDERED: Venlafaxine 37.5 MG Cap.ER PO SCH (09:00)
[2024-05-15] MEDS: FLUoxetine 20 MG Cap PO SCH (09:36)
[2024-05-15] MEDS: Cetirizine 10 MG Tab PO SCH (09:36)
[2024-05-15] MEDS: Aspirin 325 MG Tab.EC PO SCH (09:36)
[2024-05-15] MEDS: Lactobacillus Rhamnosus GG (Probiotic) Cap PO SCH (09:36)
[2024-05-15] MEDS: Multivitamins with Iron/Calcium/Folic Acid/Minerals Tab PO SCH (09:36)
[2024-05-15] MEDS: Tamsulosin 0.4 MG Cap.ER PO SCH (09:36)
[2024-05-15] MEDS: Morphine 2 MG/ML SYRINGE IVPUSH PRN (23:21)
[2024-05-16 11:02] VITALS: BP 154/80; PULSE 80
[2024-05-19] MEDS ORDERED: Alendronate 70 MG Tab PO SCH (07:00)
== END 2024-05-16 12:15 | disposition home health service (06) | DRG 483 ==
LOC: JP.SDS 12:01 → JP.MS 13:38 → JP.SDS 05-15 08:46
PROVIDERS: ADMIT Specialist; ATTEND Specialist
PROC: 0RRJ0JZ Replacement of Right Shoulder Joint with Synthetic Substitute, Open Approach (ICD-10-PCS; principal; 2024-05-15)
DX: M19.011 Primary osteoarthritis, right shoulder (principal); M81.0 Age-related osteoporosis without current pathological fracture; G89.29 Other chronic pain; M54.50 Low back pain, unspecified; E78.5 Hyperlipidemia, unspecified; K21.9 Gastro-esophageal reflux disease without esophagitis; G43.909 Migraine, unspecified, not intractable, without status migrainosus; Z88.1 Allergy status to other antibiotic agents; Z88.8 Allergy status to other drugs, medicaments and biological substances; Z90.49 Acquired absence of other specified parts of digestive tract; Z90.89 Acquired absence of other organs; Z79.82 Long term (current) use of aspirin; Z90.710 Acquired absence of both cervix and uterus; Z98.890 Other specified postprocedural states; Z79.899 Other long term (current) drug therapy
CPT/HCPCS: 01630-QZ; 36415; 73020-26-RT; 73020-RT; 80053; 85027; 97110-GO; 97110-GP; 97161-GP; 97165-GO; 97530-GP; 97535-GO; A9270-GY; C1713; C1776; J0330; J0665; J0736; J1100; J1596; J1790; J1885; J2250; J2270; J2371; J2405; J2704; J2710; J3010; J3490; J7030; J7120

== ENCOUNTER 2024-05-21 08:44 | Inpatient (IN) | payer MEDICARE ==
[2024-05-21 09:16] LABS: BASOPHILS ABSOLUTE AUTO 0.04 K/uL (0.00-0.10); BASOPHILS PERCENT AUTO 0.2 % (0.1-1.3); EOSINOPHILS PERCENT AUTO 0.1 % (0.0-5.4); HEMATOCRIT 32.3 % (34.3-46.0); IMMATURE GRAN PERCENT AUTO 0.5 % (0.0-0.7); LYMPHOCYTES ABSOLUTE AUTO 0.98 K/uL (0.8-3.3); LYMPHOCYTES PERCENT AUTO 5.1 % (11.4-47.7); MEAN CORPUSCULAR HEMOGLOBIN 27.9 pg (31.6-35.5); MEAN CORPUSCULAR HGB CONC 34.1 g/dL (31.6-35.5); MONOCYTES ABSOLUTE AUTO 0.93 K/uL (0.20-0.90); MONOCYTES PERCENT AUTO 4.9 % (3.3-12.6); NEUTROPHILS ABSOLUTE AUTO 17.03 K/uL (1.0-7.6); NEUTROPHILS PERCENT AUTO 89.2 % (40.0-78.1); PLATELET COUNT,PLT 273 K/uL (130-375); RED BLOOD CELL COUNT 3.94 M/uL (3.77-5.24); WHITE BLOOD CELL COUNT,WBC 19.1 K/uL (3.2-11.0)
[2024-05-21 09:23] LABS: EOSINOPHILS ABSOLUTE AUTO 0.01 K/uL (0.00-0.40)
[2024-05-21 09:40] LABS: ALANINE AMINOTRANSFERASE,ALT 25 U/L (12-78); ALBUMIN 3.3 g/dL (3.4-5.0); ALKALINE PHOSPHATASE 106 U/L (46-116); ASPARTATE AMNIOTRANSFERASE,AST 24 U/L (15-37); BILIRUBIN TOTAL 0.5 mg/dL (0.2-1.0); BLOOD UREA NITROGEN,BUN 27 mg/dL (7-18); CARBON DIOXIDE,CO2 28 mmol/L (21-32); CHLORIDE,CL 102 mmol/L (100-108); CREATINE KINASE,CK 543 U/L (26-192); CREATININE 1.2 mg/dL (0.6-1.0); EST CRCL DRUG DOSING (CG) 33.39 mL/min; ESTIMATED GFR 49 mL/min (>60); GLUCOSE RANDOM 160 mg/dL (74-106); PROTEIN TOTAL,TP 7.2 g/dL (6.4-8.2); SODIUM,NA 141 mmol/L (140-148)
[2024-05-21 09:41] LABS: A/G RATIO 0.9 (1.2-2.2); ANION GAP 13.6 mmol/L (5.0-14.0); POTASSIUM,K 2.6 mmol/L (3.6-5.2)
[2024-05-21] MEDS: Sodium Chloride 0.9% 1,000 ML IV SCH ×2 (10:12→15:21)
[2024-05-21] MEDS ORDERED: Potassium Chloride 20 MEQ, Lidocaine 1% 2 ML in Sodium Chloride 0.9% 100 ML IV SCH (10:30)
[2024-05-21] MEDS: Potassium Chloride 20 MEQ Tab.ER PO ONE ×2 (10:43→14:04)
[2024-05-21] MEDS: Potassium Chloride 10 MEQ in Premix Bag 1 BAG IV SCH (10:45)
[2024-05-21 10:49] LABS: APPEARANCE,URINE CLOUDY (CLEAR); BILIRUBIN,URINE NEGATIVE (NEGATIVE); COLOR,URINE YELLOW (YELLOW); GLUCOSE,URINE NEGATIVE (NEGATIVE); KETONES,URINE NEGATIVE (NEGATIVE); LEUKOCYTE ESTERASE,URINE NEGATIVE (NEGATIVE); NITRITE,URINE NEGATIVE (NEGATIVE); OCCULT BLOOD,URINE NEGATIVE (NEGATIVE); PROTEIN,URINE NEGATIVE (NEGATIVE); UROBILINOGEN,URINE 0.2 EU/dL (0.2-1.0)
[2024-05-21 11:11] LABS: AMORPHOUS SEDIMENT,URINE NOT SEEN; BACTERIA,URINE FEW; EPITHELIAL CELLS,URINE MODERATE; MUCUS,URINE MODERATE; RBC,URINE 0-5 (0-5); WBC,URINE 0-5 (0-5)
[2024-05-21] MEDS ORDERED: Furosemide 40 MG Tab PO PRN (14:19)
[2024-05-21] MEDS ORDERED: hydrOXYzine HCl 25 MG Tab PO PRN (14:19)
[2024-05-21] MEDS ORDERED: Sodium Chloride 0.9% 10 ML Syringe FLUSH PRN (14:19)
[2024-05-21] MEDS ORDERED: Alendronate 70 MG Tab PO SCH (14:19)
[2024-05-21] MEDS ORDERED: Gabapentin 300 MG Cap PO PRN (14:19)
[2024-05-21] MEDS ORDERED: Acetaminophen 325 MG Tab PO PRN (14:19)
[2024-05-21] MEDS: Enoxaparin 40 MG/0.4 ML Syringe SUBCUT SCH (15:18)
[2024-05-21] MEDS: Tamsulosin 0.4 MG Cap.ER PO SCH (16:46)
[2024-05-21] MEDS: Gabapentin 300 MG Cap PO SCH (20:21)
[2024-05-21] MEDS: Aspirin 325 MG Tab.EC PO SCH (20:22)
[2024-05-21] MEDS: Celecoxib 100 MG Cap PO SCH (20:22)
[2024-05-21] MEDS: Melatonin 3 MG Tab PO SCH (20:22)
[2024-05-21] MEDS: atorvaSTATin 10 MG Tab PO SCH (20:23)
[2024-05-21] MEDS ORDERED: Non-Formulary Medication 1 Each (Simvastatin [Zocor] 20 MG Tablet) PO SCH (21:00)
[2024-05-21] MEDS ORDERED: Non-Formulary Medication 1 Each (Melatonin [Melatonin] 5 MG Tablet) PO SCH (21:00)
[2024-05-22] MEDS: traMADol 50 MG Tab PO PRN (00:07)
[2024-05-22] MEDS: Acetaminophen/Codeine 300-30 MG Tab PO PRN (01:52)
[2024-05-22] MEDS: Ondansetron 4 MG/2 ML SDV IV PRN (01:53)
[2024-05-22 05:48] LABS: HEMATOCRIT 28.2 % (34.3-46.0); HEMOGLOBIN 9.5 g/dL (11.2-15.5); MEAN CORPUSCULAR HEMOGLOBIN 27.9 pg (31.6-35.5); MEAN CORPUSCULAR HGB CONC 33.7 g/dL (31.6-35.5); MEAN CORPUSCULAR VOLUME 82.9 fL (81.4-99.0); RED BLOOD CELL COUNT 3.4 M/uL (3.77-5.24); WHITE BLOOD CELL COUNT,WBC 13.8 K/uL (3.2-11.0)
[2024-05-22 06:09] LABS: CALCIUM 8.8 mg/dL (8.5-10.1); CREATININE 0.9 mg/dL (0.6-1.0); EST CRCL DRUG DOSING (CG) 44.52 mL/min; MAGNESIUM 2.2 mg/dL (1.8-2.4); POTASSIUM,K 4.1 mmol/L (3.6-5.2)
[2024-05-22 06:18] LABS: ANION GAP 11.1 mmol/L (5.0-14.0)
[2024-05-22] MEDS: Pantoprazole 40 MG Tab.CR PO SCH (07:17)
[2024-05-22] MEDS ORDERED: Non-Formulary Medication 1 Each (Esomeprazole Magnesium [Nexium] 40 MG Capsule.Dr) PO SCH (07:30)
[2024-05-22] MEDS: Cetirizine 10 MG Tab PO SCH (08:55)
[2024-05-22] MEDS: FLUoxetine 20 MG Cap PO SCH (08:55)
[2024-05-22] MEDS: Polyethylene Glycol 3350 Powder 17 GM Packet PO ONE (11:25)
[2024-05-23 05:10] LABS: HEMATOCRIT 29.5 % (34.3-46.0); HEMOGLOBIN 9.6 g/dL (11.2-15.5); MEAN CORPUSCULAR HEMOGLOBIN 27.6 pg (31.6-35.5); MEAN CORPUSCULAR HGB CONC 32.5 g/dL (31.6-35.5); MEAN CORPUSCULAR VOLUME 84.8 fL (81.4-99.0); RED BLOOD CELL COUNT 3.48 M/uL (3.77-5.24); WHITE BLOOD CELL COUNT,WBC 10.2 K/uL (3.2-11.0)
[2024-05-23 05:23] LABS: CALCIUM 8.5 mg/dL (8.5-10.1); CREATININE 0.8 mg/dL (0.6-1.0); EST CRCL DRUG DOSING (CG) 50.08 mL/min
[2024-05-23] MEDS: Sennosides/Docusate Sodium 50-8.6 MG Tab PO PRN (09:04)
[2024-05-23] MEDS ORDERED: Sodium Phosphate,Monobasic/Sodium Phosphate,Dibasic Enema 133 ML Bottle RECTAL PRN (11:51)
[2024-05-23] MEDS: Polyethylene Glycol 3350 Powder 17 GM Packet PO ONE (12:27)
[2024-05-23] MEDS: Bisacodyl 10 MG Supp RECTAL ONE (12:27)
[2024-05-24 11:02] VITALS: BP 128/71; PULSE 69
[2024-05-26] MEDS ORDERED: Alendronate 70 MG Tab PO SCH (07:30)
== END 2024-05-24 13:57 | DRG 948 ==
LOC: JP.ED 08:44 → JP.MS 13:22
PROVIDERS: ADMIT Hospitalist; ATTEND Hospitalist
DX: R53.1 Weakness (principal); Z68.41 Body mass index [BMI] 40.0-44.9, adult; E87.6 Hypokalemia; G35 Multiple sclerosis; Z96.611 Presence of right artificial shoulder joint; H54.7 Unspecified visual loss; E78.00 Pure hypercholesterolemia, unspecified; K52.9 Noninfective gastroenteritis and colitis, unspecified; K21.9 Gastro-esophageal reflux disease without esophagitis; J45.909 Unspecified asthma, uncomplicated; M19.90 Unspecified osteoarthritis, unspecified site; G43.909 Migraine, unspecified, not intractable, without status migrainosus; Z88.5 Allergy status to narcotic agent; F41.9 Anxiety disorder, unspecified; F32.A Depression, unspecified; E66.9 Obesity, unspecified; W19.XXXA Unspecified fall, initial encounter; K59.00 Constipation, unspecified; Z98.49 Cataract extraction status, unspecified eye; Z88.1 Allergy status to other antibiotic agents; Z88.0 Allergy status to penicillin; Z88.2 Allergy status to sulfonamides; Z88.8 Allergy status to other drugs, medicaments and biological substances; Z79.899 Other long term (current) drug therapy; Z79.82 Long term (current) use of aspirin; Z87.01 Personal history of pneumonia (recurrent); Z86.010 Personal history of colon polyps; Z87.81 Personal history of (healed) traumatic fracture; Z90.89 Acquired absence of other organs; Z90.49 Acquired absence of other specified parts of digestive tract; Z98.890 Other specified postprocedural states; Z90.710 Acquired absence of both cervix and uterus; Z90.722 Acquired absence of ovaries, bilateral
CPT/HCPCS: 36415; 70450 ×2; 71045 ×2; 73552 ×2; 73590 ×2; 80053; 81001; 82550; 84145; 85025; 86140; 96361; 96365; 96366; 99285; A9270; J3480 ×2; J7030; 80048; 83735; 84132; 85027; 97110-GO; 97110-GP; 97116-GP; 97161-GP; 97165-GO; 97530-GP; 97535-GO; 99222; 99231; 99238; J1650; J2405

== ENCOUNTER 2024-06-14 04:19 | Emergency (ER) | payer MEDICARE ==
[2024-06-14 04:36] LABS: BASOPHILS ABSOLUTE AUTO 0.07 K/uL (0.00-0.10); BASOPHILS PERCENT AUTO 0.8 % (0.1-1.3); EOSINOPHILS ABSOLUTE AUTO 0.44 K/uL (0.00-0.40); EOSINOPHILS PERCENT AUTO 5.3 % (0.0-5.4); HEMATOCRIT 33.5 % (34.3-46.0); HEMOGLOBIN 10.7 g/dL (11.2-15.5); IMMATURE GRAN ABSOLUTE AUTO 0.03 K/uL (0.00-0.23); IMMATURE GRAN PERCENT AUTO 0.4 % (0.0-0.7); LYMPHOCYTES ABSOLUTE AUTO 2.25 K/uL (0.8-3.3); LYMPHOCYTES PERCENT AUTO 27.1 % (11.4-47.7); MEAN CORPUSCULAR HEMOGLOBIN 27.7 pg (31.6-35.5); MEAN CORPUSCULAR HGB CONC 31.9 g/dL (31.6-35.5); MEAN CORPUSCULAR VOLUME 86.8 fL (81.4-99.0); MONOCYTES ABSOLUTE AUTO 0.74 K/uL (0.20-0.90); MONOCYTES PERCENT AUTO 8.9 % (3.3-12.6); NEUTROPHILS ABSOLUTE AUTO 4.77 K/uL (1.0-7.6); NEUTROPHILS PERCENT AUTO 57.5 % (40.0-78.1); PLATELET COUNT,PLT 261 K/uL (130-375); RED BLOOD CELL COUNT 3.86 M/uL (3.77-5.24); WHITE BLOOD CELL COUNT,WBC 8.3 K/uL (3.2-11.0)
[2024-06-14 04:51] LABS: CALCIUM 8.6 mg/dL (8.5-10.1); CREATININE 0.9 mg/dL (0.6-1.0); EST CRCL DRUG DOSING (CG) 44.52 mL/min; MAGNESIUM 1.9 mg/dL (1.8-2.4); POTASSIUM,K 3.1 mmol/L (3.6-5.2)
[2024-06-14 04:54] LABS: ANION GAP 13.1 mmol/L (5.0-14.0)
[2024-06-14 04:59] LABS: APPEARANCE,URINE CLEAR (CLEAR); BILIRUBIN,URINE NEGATIVE (NEGATIVE); COLOR,URINE YELLOW (YELLOW); GLUCOSE,URINE NEGATIVE (NEGATIVE); KETONES,URINE NEGATIVE (NEGATIVE); LEUKOCYTE ESTERASE,URINE TRACE (NEGATIVE); NITRITE,URINE NEGATIVE (NEGATIVE); OCCULT BLOOD,URINE TRACE-INTACT (NEGATIVE); PH,URINE 6.5 (5.0-8.0); PROTEIN,URINE NEGATIVE (NEGATIVE); UROBILINOGEN,URINE 0.2 EU/dL (0.2-1.0)
[2024-06-14 05:13] LABS: AMORPHOUS SEDIMENT,URINE FEW; BACTERIA,URINE FEW; EPITHELIAL CELLS,URINE FEW; MUCUS,URINE NOT SEEN; RBC,URINE 0-5 (0-5); WBC,URINE 0-5 (0-5)
[2024-06-14] MEDS: Potassium Chloride 20 MEQ Tab.ER PO ONE (05:20)
[2024-06-14 06:54] VITALS: BP 107/59; PULSE 78
== END 2024-06-14 08:20 | disposition home or self-care (01) ==
LOC: JP.ED 04:19
DX: M25.552 Pain in left hip (principal); E78.00 Pure hypercholesterolemia, unspecified; J45.909 Unspecified asthma, uncomplicated; K21.9 Gastro-esophageal reflux disease without esophagitis; E66.9 Obesity, unspecified; M19.90 Unspecified osteoarthritis, unspecified site; Z68.38 Body mass index [BMI] 38.0-38.9, adult; Z90.49 Acquired absence of other specified parts of digestive tract; Z90.710 Acquired absence of both cervix and uterus; Z79.899 Other long term (current) drug therapy; Z79.82 Long term (current) use of aspirin; Z88.1 Allergy status to other antibiotic agents; Z88.5 Allergy status to narcotic agent; Z88.0 Allergy status to penicillin; Z88.2 Allergy status to sulfonamides; Z88.8 Allergy status to other drugs, medicaments and biological substances; W19.XXXA Unspecified fall, initial encounter
CPT/HCPCS: 36415; 73502; 80048; 81001; 83735; 85025; 99284; A9270

== ENCOUNTER 2025-02-08 06:32 | Day surgery (SDC) | payer MEDICARE ==
[2025-02-08] MEDS ORDERED: Midazolam 1 MG/ML 2 ML SDV ONE (07:05)
[2025-02-08] MEDS ORDERED: fentaNYL 100 MCG/2 ML SDV ONE (07:05)
[2025-02-08] MEDS ORDERED: Propofol 200 MG/20 ML SDV ONE ×2 (07:05→07:57)
[2025-02-08] MEDS: Lactated Ringers 1,000 ML IV SCH (07:36)
[2025-02-08] MEDS ORDERED: Lactated Ringers 1,000 ML IV SCH (08:30)
[2025-02-08 09:01] VITALS: BP 112/63; PULSE 67
== END 2025-02-08 09:28 | disposition home or self-care (01) ==
LOC: JP.SDS 06:32
PROVIDERS: ATTEND Family Medicine
DX: Z12.11 Encounter for screening for malignant neoplasm of colon (principal); K51.40 Inflammatory polyps of colon without complications; K21.9 Gastro-esophageal reflux disease without esophagitis; E78.5 Hyperlipidemia, unspecified; Z88.1 Allergy status to other antibiotic agents; Z88.5 Allergy status to narcotic agent; Z88.0 Allergy status to penicillin; Z88.2 Allergy status to sulfonamides
CPT/HCPCS: 00811; 45385; 88305; J2250; J2704; J3010; J7120

== ENCOUNTER 2025-04-28 13:46 | Emergency (ER) | payer MEDICARE ==
[2025-04-28 16:25] VITALS: BP 130/71; PULSE 75
== END 2025-04-28 16:50 | disposition home or self-care (01) ==
LOC: JP.ED 13:46
DX: M54.50 Low back pain, unspecified (principal); E78.00 Pure hypercholesterolemia, unspecified; E66.9 Obesity, unspecified; M19.90 Unspecified osteoarthritis, unspecified site; Z79.899 Other long term (current) drug therapy; Z79.82 Long term (current) use of aspirin; Z88.8 Allergy status to other drugs, medicaments and biological substances; Z88.1 Allergy status to other antibiotic agents; Z88.5 Allergy status to narcotic agent; Z88.0 Allergy status to penicillin; Z90.710 Acquired absence of both cervix and uterus; Z90.49 Acquired absence of other specified parts of digestive tract; Z68.36 Body mass index [BMI] 36.0-36.9, adult
CPT/HCPCS: 99283

== ENCOUNTER 2025-07-27 14:05 | Emergency (ER) | payer MEDICARE ==
[2025-07-27] MEDS: Ketorolac 15 MG/ML SDV IM ONE (15:11)
[2025-07-27 17:04] VITALS: BP 120/61; PULSE 60
== END 2025-07-27 17:05 | disposition home or self-care (01) ==
LOC: JP.ED 14:05
DX: S30.0XXA Contusion of lower back and pelvis, initial encounter (principal); E78.00 Pure hypercholesterolemia, unspecified; J45.909 Unspecified asthma, uncomplicated; K21.9 Gastro-esophageal reflux disease without esophagitis; M19.90 Unspecified osteoarthritis, unspecified site; E66.9 Obesity, unspecified; Z88.8 Allergy status to other drugs, medicaments and biological substances; Z88.5 Allergy status to narcotic agent; Z88.1 Allergy status to other antibiotic agents; Z88.0 Allergy status to penicillin; Z88.2 Allergy status to sulfonamides; Z86.16 Personal history of COVID-19; Z79.899 Other long term (current) drug therapy; Z79.82 Long term (current) use of aspirin; Z90.89 Acquired absence of other organs; Z90.49 Acquired absence of other specified parts of digestive tract; W19.XXXA Unspecified fall, initial encounter
CPT/HCPCS: 72100; 96372; 99283; A9270; J1885